=== PATIENT | male | born 1930 | race Caucasian/White ===

== ENCOUNTER 2017-06-01 08:42 | Inpatient (IN) ==
[2017-06-01 09:34] LABS: Basophils % 0.3 %; Eosinophils % 0.3 %; Hematocrit 43.6 % (37.5-50.1); Hemoglobin 14.3 g/dL (12.9-16.9); Immature Granulocytes % 1.1 % (0-4); Lymphocytes # 0.8 K/mcL (0.6-4.6); Lymphocytes % 6.1 %; Mean Corpuscular HGB Conc 32.8 g/dL (31.6-35.5); Mean Corpuscular Hemoglobin 31.7 pg (28.0-33.3); Mean Corpuscular Volume 96.7 fL (83.0-100.0); Mean Platelet Volume 10.2 fL (9.4-12.4); Monocytes # 1.1 K/mcL (0.0-1.3); Monocytes % 8.1 %; Neutrophils # 11.4 K/mcL (1.6-8.9); Platelet Count 151 K/mcL (140-400); Red Blood Count 4.51 M/mcL (4.19-5.50); Red Cell Distribution Width 13.3 % (11.5-14.5); Segmented Neutrophils % 84.1 %
--- NOTE | 2017-06-01 09:35 | Emergency Department Note ---
Disposition Clinical Impression: NSTEMI (non-ST elevated myocardial infarction), Elevated brain natriuretic peptide (BNP) level CKD (chronic kidney disease) Qualifiers: Chronic kidney disease stage: unspecified stage Qualified Code(s): N18.9 - Chronic kidney disease, unspecified Dyspnea Qualifiers: Dyspnea type: shortness of breath Qualified Code(s): R06.02 - Shortness of breath Disposition: Admitted As Inpatient Condition: Fair Referrals: Andrzej Vázquez DO [Primary Care Provider] - Forms: ED Satisfaction Letter SOB HPI - General Chief Complaint: ED Shortness of Breath/Dyspnea Stated Complaint: SOB Time Seen by Provider: 06/01/17 09:10 Source: patient Mode of arrival: private vehicle Limitations: no limitations Nursing Notes Reviewed: Yes Vital Signs Reviewed: Yes - History of Present Illness 87-year-old male history of coronary artery disease, CABG 2, A. fib not currently anticoagulated, diabetes who presents to the ER with a chief complaint of shortness of breath. Patient reports one month ago he was treated for bronchitis. He states he improved over the last week he started to have shortness of breath again. He reports that he is unable to lay flat. He also noticed swelling to his lower extremities. He denies any chest pain at this time. He has had a cough with mucus production. No fevers at home. He has had decreased appetite. No other complaints. Pt Subjective Complaint: shortness of breath, cough Onset (ago): week(s) (1) Context: recent illness Severity: moderate Consistency/Duration: constant Improves with: nothing Worsens with: lying flat Known history of: asthma, congestive heart failure Associated symptoms: Reports: cough, sputum production, orthopnea. Denies: chest pain, fever Treatment prior to arrival: none Cough present: Yes Cough Description: Involuntary Cough Frequency: Intermittent Sputum production: Yes Sputum Amount: Small Sputum Color: Clear - Related Data Home oxygen amount: none Allergies Allergy/AdvReac Type Severity Reaction Status Date / Time No Known Allergies Allergy Verified 01/06/16 02:18 All systems ED: reviewed and negative except as stated. Constitutional: Reports: chills. Denies: fever Cardiovascular: Reports: dyspnea on exertion. Denies: chest pain Respiratory: Reports: cough, dyspnea, sputum production Gastrointestinal: Reports: nausea, vomiting. Denies: abdominal pain, diarrhea Past Medical History - Past Medical History Attestation: Yes The following information was validated with the patient. Source: patient Medical history: Reports: asthma, atrial fibrillation, CHF, diabetes, hypertension Psychiatric history: Reports: no psych history - Social History Smoking Status: Never smoker Smokeless Tobacco Status: No Alcohol use: Reports: none Drug use: Reports: none Physical Exam - General Limitations: no limitations General appearance: alert, in no apparent distress - Head Head exam: atraumatic, normocephalic - Eye Eye exam: Present: normal appearance - ENT ENT exam: normal exam - Neck Neck exam: Present: normal inspection - Chest Chest inspection: Present: normal inspection, symmetric chest wall rise - Respiratory Respiratory exam: Present: other (Diminished breath sounds bilaterally) - Cardiovascular Cardiovascular exam: Present: tachycardia, irregular rhythm, normal heart sounds - Abdominal Exam Abdominal exam: Present: soft, Non-Tender. Absent: tenderness - Extremities Exam Extremities exam: Present: normal inspection, full ROM - Expanded Upper Extremity Exam Shoulder exam: Present: normal inspection, full ROM Arm exam: Present: normal inspection, full ROM Elbow exam: Present: normal inspection, full ROM Forearm/Wrist exam: Present: normal inspection, full ROM Hand exam: Present: normal inspection, full ROM - Expanded Lower Extremity Exam Hip/Pelvis exam: Present: normal inspection, full ROM Upper leg exam: Present: normal inspection, full ROM Knee exam: Present: normal inspection, full ROM Lower leg exam: Present: normal inspection, full ROM, swelling (There is 3+ bilateral lower extremity pitting edema) Ankle exam: Present: normal inspection, full ROM Foot/toe exam: Present: normal inspection, full ROM - Skin Skin exam: Present: warm, dry Course Course Narrative: Patient seen and examined the time of arrival. He was noted to have a short run of what looked like V. tach on the monitor which resolved without intervention. Crash cart placed in the room and patient connected to peds. We will obtain an EKG, chest x-ray as well as labs including troponin and BNP. He is currently hemodynamically stable noted be in A. fib RVR with a rate of roughly 105. - Reevaluation(s) Reevaluation #1: Labs reviewed. Patient has stable kidney injury. He has a troponin of 0.3 without previous for comparison. He is noted to have an elevated BNP over 500 as well as chest x-ray with cardiomegaly. Discussed with patient about findings and agreeable with heparin. He states he coughed up a slight amount of blood the other day but nothing acute. We will start him on heparin for NSTEMI. We will also have to transfer the patient has he there are no telemetry beds here currently. Reevaluation #2: No focal locations have no current beds available. They are starting to get some open beds here for telemetry. Patient and family would like to stay here possible. Case discussed with the hospitalist. - Consultations Consultation #1: I spoke with the on-call circus roustabout Dr. Brenner. Discussed patient's history, vitals, labs and interventions. No prior troponin to trend. He agrees with heparinization and they will see the patient in consultation. Vital Signs Temperature 97.9 F 06/01/17 08:46 Pulse Rate 103 06/01/17 08:46 Respiratory Rate 18 06/01/17 08:46 Blood Pressure 127/71 06/01/17 08:46 O2 Sat by Pulse Oximetry 97 06/01/17 08:46 Temperature 97.9 F 06/01/17 08:46 Pulse Rate 107 06/01/17 11:54 Respiratory Rate 17 06/01/17 11:54 Blood Pressure 106/64 06/01/17 11:54 O2 Sat by Pulse Oximetry 96 06/01/17 11:54 Oxygen Delivery Oxygen Delivery Nasal Cannula Shortness of Breath/Dyspnea - MDM Narrative Medical decision making narrative: 87-year-old male presents to the ER due to shortness of breath for one week. Cardiac history of CABG 2 as well as coronary artery disease hypertension diabetes and atrial fibrillation. Noted to be in A. fib RVR with a rate of roughly 105 here. Hemolytically stable. Chest x-ray with cardiomegaly with lower 70 pitting edema. He is noted to have kidney injury which is chronic as well as an elevated troponin of 0.3 without previous for comparison with a BNP of 500. Case discussed with the on-call circus roustabout who will see in consultation and agrees with heparinization. Patient will be heparinized for NSTEMI. Admitted to the hospitalist service. - Lab Data Lab results reviewed: Yes I reviewed the patient's lab results. Result diagrams: 06/01/17 09:19 06/01/17 09:19 Lab Results 06/01/17 06/01/17 06/01/17 Range/Units 09:19 09:19 09:19 WBC 13.5 H (4.3-11.1) K/mcL RBC 4.51 (4.19-5.50) M/mcL Hgb 14.3 (12.9-16.9) g/dL Hct 43.6 (37.5-50.1) % MCV 96.7 (83.0-100.0) fL MCH 31.7 (28.0-33.3) pg MCHC 32.8 (31.6-35.5) g/dL RDW 13.3 (11.5-14.5) % Plt Count 151 (140-400) K/mcL MPV 10.2 (9.4-12.4) fL Immature Gran % 1.1 (0-4) % Seg Neutrophils % 84.1 % Lymphocytes % 6.1 % Monocytes % 8.1 % Eosinophils % 0.3 % Basophils % 0.3 % Neutrophils # 11.4 H (1.6-8.9) K/mcL Lymphocytes # 0.8 (0.6-4.6) K/mcL Monocytes # 1.1 (0.0-1.3) K/mcL Eosinophils # 0.0 (0.0-0.6) K/mcL Basophils # 0.0 (0.0-0.2) K/mcL PT (9.4-12.1) Seconds INR APTT (26.0-36.0) Seconds Sodium 133 L (136-145) mEq/L Potassium 3.4 L (3.5-5.1) mEq/L Chloride 91 L (98-107) mEq/L Carbon Dioxide 28 (23-29) mEq/L BUN 33 H (8-23) mg/dL Creatinine 1.96 H (0.70-1.30) mg/dL Est GFR ( Amer) 40 L (> 60) Est GFR (Non-Af Amer) 33 L (> 60) BUN/Creatinine Ratio 17 (6-26) Glucose 225 H (70-105) mg/dL Calculated Osmolality 290 (280-300) Calcium 10.5 H (8.6-10.3) mg/dL Troponin I 0.31 H* (< 0.04) ng/mL B-Natriuretic Peptide (Less than 100) pg/mL 06/01/17 06/01/17 Range/Units 09:19 09:19 WBC (4.3-11.1) K/mcL RBC (4.19-5.50) M/mcL Hgb (12.9-16.9) g/dL Hct (37.5-50.1) % MCV (83.0-100.0) fL MCH (28.0-33.3) pg MCHC (31.6-35.5) g/dL RDW (11.5-14.5) % Plt Count (140-400) K/mcL MPV (9.4-12.4) fL Immature Gran % (0-4) % Seg Neutrophils % % Lymphocytes % % Monocytes % % Eosinophils % % Basophils % % Neutrophils # (1.6-8.9) K/mcL Lymphocytes # (0.6-4.6) K/mcL Monocytes # (0.0-1.3) K/mcL Eosinophils # (0.0-0.6) K/mcL Basophils # (0.0-0.2) K/mcL PT 13.5 H (9.4-12.1) Seconds INR 1.2 APTT 26.4 (26.0-36.0) Seconds Sodium (136-145) mEq/L Potassium (3.5-5.1) mEq/L Chloride (98-107) mEq/L Carbon Dioxide (23-29) mEq/L BUN (8-23) mg/dL Creatinine (0.70-1.30) mg/dL Est GFR ( Amer) (> 60) Est GFR (Non-Af Amer) (> 60) BUN/Creatinine Ratio (6-26) Glucose (70-105) mg/dL Calculated Osmolality (280-300) Calcium (8.6-10.3) mg/dL Troponin I (< 0.04) ng/mL B-Natriuretic Peptide 573 H (Less than 100) pg/mL - Radiology Data Radiology results reviewed: Yes I reviewed the patient's radiology results. Chest X-Ray 06/01/17 09:22 IMPRESSION: 1. Low lung volumes with bibasilar atelectasis. 2. Cardiomegaly without overt failure. D/ / Facundo Hughes MD / Facundo Hughes MD Interpreting Provider: Facundo Hughes MD - EKG Data EKG attestation: Yes I reviewed and interpreted this EKG. EKG results narrative: EKG demonstrates atrial fibrillation with rapid ventricular response with a rate of 105 with a right bundle branch block. Normal axis. Prolonged QRS duration 137. Normal R-wave progression. Nonspecific ST-T wave changes in the inferior and lateral leads. No gross ST elevations or depressions. No previous EKG for comparison. S.B.A.R. - S.B.A.R. Situation: Demographics, MOA Background: Presenting Complaint, Relevant PMH, Meds, & Allergies Assessment: Vital Signs, Course and respsone to treatment, Exam Concerns, Patient/Family Expectation, Pertinant Lab Results Recommendation: Barrier(s) to disposition, Recommendation based on pending studies, treatments, or consults S.B.A.R. Report Given to: Dr. Caputo
[2017-06-01 09:53] LABS: Calcium 10.5 mg/dL (8.6-10.3); Potassium 3.4 mEq/L (3.5-5.1)
--- NOTE | 2017-06-01 10:18 | Emergency Department Note ---
START Narrative - START START: I examined this patient and my medical decision-making was reviewed with the emergency medicine resident. I agree with the documented findings, disposition and treatment plan as described except to the extent set forth below. Patient seen with emergency medicine resident Dr. Jw Simon, Please see a copy of his note for details of the H&P, ED evaluation, management and disposition. I have independently evaluated the patient and confirmed appropriate portions of the history and physical exam. Briefly: A 87-year-old male presented by private vehicle for shortness of breath. He has a history of atrial fibrillation. Patient has atrial fibrillation rate about 100. Troponin critically elevated at 0.31. No prior troponins on record here. Patient will be treated for N STEMI,. There are no telemetry beds available at [facility]. We will go to bed management and ED charge nurse for placement. Patient be anticoagulated. Transfer disposition pending. Provided 45 minutes carpopedal service for this patient.
[2017-06-01] MEDS ORDERED: *HR* Heparin 5,000 UNIT/ML VIAL IVP PRN ×2 (10:21)
[2017-06-01] MEDS ORDERED: *HR* Heparin 5,000 UNIT/ML VIAL IVP ONE (10:21)
[2017-06-01 10:43] LABS: INR 1.2; Prothrombin Time 13.5 Seconds (9.4-12.1)
[2017-06-01 10:46] LABS: Activated Partial Thrombo Time 26.4 Seconds (26.0-36.0)
[2017-06-01] MEDS: Heparin 25,000 UNIT/500 ML D5W 25,000 UNIT/500 ML BAG IVC SCH (11:02)
[2017-06-01] MEDS ORDERED: Naloxone 0.4 MG/ML INJ IVP PRN (12:42)
[2017-06-01] MEDS ORDERED: Levofloxacin 500 MG/100 ML 500 MG/100 ML BAG IVPB ONE (12:55)
[2017-06-01] MEDS ORDERED: Acetaminophen 325 MG TABLET PO PRN (13:02)
[2017-06-01] MEDS ORDERED: *HR* HYDROcodone/Acet 5/325 mg TABLET PO PRN (13:02)
--- NOTE | 2017-06-01 13:06 | Internal Med History&Physical ---
Date of Encounter: 06/01/17 Time of Encounter: 12:15 Assessment and Plan (1) Acute exacerbation of CHF (congestive heart failure) Current visit: Yes Status: Acute Acute exacerbation of CHF. BNP 573 on admission. Pt. reports increase in SOB, dyspnea, orthopnea, weight/abdominal girth, and bilateral pedal edema over the past week. Generalized weakness. Pt. reports PO lasix 40 mg daily. Hold PO and administer 40 IVP lasix BID. Xopenex 0.63 Q8. 1.5L daily fluid restriction. Monitor I&O and daily weight. Supplemental O2 with titration SPO2 monitoring. Continuous cardiac telemetry. Echocardiogram ordered. Pt. discussed w/Dr. Caputo who is in agreement w/plan of care. Pt. is high risk for further morbidity d/t current CHF exacerbation, elevated troponin, pneumonia, generalized weakness, hx , and risk factors. Inpatient. Qualifiers: Congestive heart failure type: diastolic Qualified Code(s): I50.33 - Acute on chronic diastolic (congestive) heart failure (2) Elevated troponin Current visit: Yes Status: Acute Acutely elevated initial troponin of 0.31 on admission. Pt. reports pleuritic pain w/inspiration but denies chest pain. VQ scan to r/o PE. Trend x2. Pt. placed on heparin drip. Cardiology consult ordered in ED. Continuous cardiac telemetry. Echocardiogram ordered. Aspirin. Continue pts. Lipitor. (3) Pneumonia Current visit: Yes Status: Acute Acute CAP dx by PCP last . WBC 13.5 on admission. Pt. does not currently meet sepsis criteria but will be monitored closely. Pt. placed on PO levaquin and reports finishing 4/7 days. Blood cultures x2. Sputum culture. Legionella and strep pneumoniae antigens. IVPB levaquin 500 mg today followed by 250 mg daily d/t current renal dysfunction. Supplemental O2 w/titration and SpO2 monitoring. Xopenex 0.63 mg Q8. Will adjust abx coverage based on culture results. Monitor pt. and f/u labs. Qualifiers: Pneumonia type: due to unspecified organism Laterality: left Lung location: unspecified part of lung Qualified Code(s): J18.9 - Pneumonia, unspecified organism (4) Generalized weakness Current visit: Yes Status: Acute Acute generalized weakness for the past month most likely d/t pts. previous bronchitis dx and current pneumonia dx. Falls/safety precautions, up with assist , bed rest w/bedside commode w/assist only. SW/PT/OT consults ordered to assess pts. ambulation stability and safety/possible rehab needs post-discharge. (5) Nausea & vomiting Current visit: Yes Status: Acute Hx of acute nausea and vomiting. IVP Zofran 4 mg Q6 for N/V. IVP Protonix 40 mg daily. Monitor I&O. Nutrition consult for PO supplementation. Qualifiers: Vomiting type: cyclical vomiting Vomiting Intractability: non-intractable Qualified Code(s): G43.A0 - Cyclical vomiting, not intractable (6) Atrial fibrillation Current visit: Yes Status: Chronic Hx of chronic atrial fibrillation. EKG today shows atrial fibrillation with rapid ventricular response with aberrant conduction or ventricular premature complexes, right bundle branch block. Pt. placed on heparin drip. Continuous cardiac telemetry. Echocardiogram ordered. Qualifiers: Atrial fibrillation type: chronic Qualified Code(s): I48.2 - Chronic atrial fibrillation (7) Diabetes Current visit: Yes Status: Chronic Hx of chronic diabetes controlled with oral antihyperglycemic medications and insulin. Will continue patient's daily insulin and add low-dose correction sliding scale with hypoglycemic protocol. BG checks before meals and at bedtime. A1c in a.m. labs. Qualifiers: Diabetes mellitus type: type 2 Diabetes mellitus complication status: with unspecified complications Diabetes mellitus terminal operator insulin use: unspecified skilled nursing insulin use status Qualified Code(s): E11.8 - Type 2 diabetes mellitus with unspecified complications (8) HTN (hypertension) Current visit: Yes Status: Chronic Hx of chronic HTN. Monitor pt. and VS. Continue pts. Lopressor, Zaroxolyn. Qualifiers: Hypertension type: essential hypertension Qualified Code(s): I10 - Essential (primary) hypertension (9) HLD (hyperlipidemia) Current visit: Yes Status: Chronic Hx of chronic HLD. Lipid panel in a.m. labs. Continue pts. Lipitor. Qualifiers: Hyperlipidemia type: pure hypercholesterolemia Qualified Code(s): E78.00 - Pure hypercholesterolemia, unspecified; E78.0 - Pure hypercholesterolemia (10) CAD (coronary artery disease) Current visit: Yes Status: Chronic Hx of chronic CAD w/CABG x2, aortic valve replacement, and stent x1. Continuous cardiac telemetry. Echocardiogram ordered. Continue pts. Lopressor, aspirin therapy, Lipitor, Zaroxolyn. Qualifiers: Coronary Disease-Associated Artery/Lesion type: unspecified vessel or lesion type [place] vs. transplanted heart: [place] heart Associated angina: angina presence unspecified Qualified Code(s): I25.10 - Atherosclerotic heart disease of [place] coronary artery without angina pectoris (11) Thyroid disease Current visit: Yes Status: Chronic Hx of chronic thyroid disease. TSH and Free T4 ordered. Continue pts. Levothroid. (12) DVT prophylaxis Current visit: Yes Status: Acute Patient placed on heparin drip d/t current elevated troponin. Monitor pt. for signs of bleeding. Internal Medicine - H&P: HPI Chief complaint: SOB/Dyspnea/Generalized weakness Admitted From: Emergency Dept Plans for Post Hospital Care: Home History of present illness: Mr. Steel is a 87 year old male with medical hx asthma, atrial fibrillation, CHF, diabetes controlled with oral and insulin, hypertension, CAD, Aortic valve replacement, CABG x2, and stent x1 presents from the ED w/chief complaint of SOB and dyspnea over the past week. Pt. reports anorexia and no real BM for a week. States he has had increase in weight/abdominal girth and bilateral pedal edema for the past week. Reports he was diagnosed w/pneumonia by PCP last and placed on PO levaquin. Completed 4/7 days. Also reports pleuritic pain w/deep inspiration, chills, nausea, dry heaves, and cough w/sputum production. Pt. denies chest pain, palpitations, abdominal pain, changes in vision, unusual bleeding, numbness, tingling, dizziness, lightheadedness, pre- syncope, or syncope. Past Med Surg Social Fam HX - Past Medical History Source: patient, old records reviewed, obtained from family Medical history: asthma, atrial fibrillation, CHF, diabetes (Oral and insulin), hypertension Psychiatric history: no psych history - Past Surgical History Surgical History: angioplasty/stent (x1), coronary bypass (CABG) (x2), other ( Aortic valve replacement) - Social History Smoking Status: Never smoker Smokeless Tobacco Status: No Alcohol use: none Drug use: none Occupational status: retired Current living situation: Home, With Family Activity Level: Uses cane/walker Recent Out of Country Travel Within the Last 8 Weeks: No Exposure or Possible Exposure to Illness During Travel: No - Family History Father Race: Family Member Ethnicity: Non- Living Status: Age at : 57 Cause of : MS Hx Family Neuromuscular Disorders: Yes (MS) Mother Race: Family Member Ethnicity: Non- Living Status: Age at : 90 Cause of : HD Hx Family Cardiac Disorders: Yes (HD) Brother Race: Family Member Ethnicity: Non- Living Status: Age at : 88 Cause of : HD Hx Family Neurologic Disorders: Yes (Alzheimer's disease) Sister Race: Family Member Ethnicity: Non- Living Status: Still Living Hx Family Endocrine Disorder: Yes (DM ) Internal Medicine - H&P: Meds 3 Allergy/AdvReac Type Severity Reaction Status Date / Time No Known Allergies Allergy Verified 01/06/16 02:18 All Systems PM: A 10-system review of systems was performed and is negative for pertinent findings except as documented above in the HPI. - Constitutional Constitutional: as per HPI, anorexia, chills, fatigue, weakness, no fever(s), no night sweats - EENT Eyes: no change in vision, no discharge, no pain, no photophobia Ears: no ear discharge, no ear pain, no tinnitus Nose, mouth and throat: no dysphagia, no nasal discharge, no neck pain, no sore throat - Breasts Breasts: as per HPI - Cardiovascular Cardiovascular ROS IM: as per HPI, dyspnea, dyspnea on exertion, edema ( Bilateral), no chest pain, no diaphoresis, no lightheadedness, no palpitations, no syncope - Respiratory Respiratory: as per HPI, cough, dyspnea, dyspnea on exertion, wheezing, pain on inspiration, change in phlegm color, no excessive phlegm production - Gastrointestinal Gastrointestinal: as per HPI, nausea, vomiting (Dry heaves), no abdominal pain, no diarrhea, no hematemesis, no hematochezia, no melena - Genitourinary Genitourinary ROS male: as per HPI - Musculoskeletal Musculoskeletal ROS IM: no numbness, no tingling - Integumentary Integumentary IM: no rash, no unusual bruising - Neurological Neurological ROS: no confusion, no convulsions, no focal weakness, no numbness, no tingling, no tremor(s) - Psychiatric Psychiatric: as per HPI - Endocrine Endocrine IM: as per HPI - Hematologic/Lymphatic Hematologic/Lymphatic: no easy bruising - Allergic/Immunologic Allergic/Immunologic: as per HPI - Constitutional Vitals: Temp Pulse Resp BP Pulse Ox 97.9 F 89 14 134/91 95 06/01/17 08:46 06/01/17 12:51 06/01/17 12:51 06/01/17 12:51 06/01/17 12:51 General appearance: Present: cooperative, mild distress, A&O X 3, pleasant, obese, answers questions appropriately - Head Head exam: Present: atraumatic, normocephalic - Eye Eye exam: Present: PERRL, conjuntiva pink, sclera anicteric Pupils: Present: PERRL - Neck Neck exam general surgery: Present: normal inspection, supple, trachea midline. Absent: lymphadenopathy - Respiratory Respiratory exam: Present: accessory muscle use, wheezes. Absent: rales, rhonchi - Cardiovascular Cardiovascular exam: Present: irregular rhythm (Atrial fibrillation) - GI/Abdominal GI/Abdominal exam: Present: normal bowel sounds, soft, no peritoneal signs. Absent: distended, tenderness - Rectal Rectal exam: Present: deferred - Additional comments: exam deferred. - Extremities Exam Extremities exam: Present: pedal edema (2+ bilateral pitting edema of LEs), warm , radial pulses palpable and symmetrical. Absent: calf tenderness, cyanotic - Back Exam Back exam: Present: normal inspection - Neurological Exam Neurological exam: Present: CN II-XII intact, oriented X3, no focal deficits. Absent: pronater drift, facial droop, speech deficit - Psychiatric Psychiatric exam: Present: normal affect, normal mood - Skin Skin exam: Present: dry, intact Internal Med - H&P Results - Labs CBC & Chem 7: 06/01/17 09:19 06/01/17 09:19 Labs: Short CBC 06/01/17 Range/Units 09:19 WBC 13.5 H (4.3-11.1) K/mcL Hgb 14.3 (12.9-16.9) g/dL Hct 43.6 (37.5-50.1) % Plt Count 151 (140-400) K/mcL Neutrophils # 11.4 H (1.6-8.9) K/mcL BMP 06/01/17 09:19 Sodium 133 L Potassium 3.4 L Chloride 91 L Carbon Dioxide 28 BUN 33 H Creatinine 1.96 H Glucose 225 H Calcium 10.5 H Cardiac Enzymes 06/01/17 Range/Units 09:19 Troponin I 0.31 H* (< 0.04) ng/mL - EKG Data Prior EKG available for review: no EKG comments: 06/01/17 13:22 EKG dated 06/01/17 shows atrial fibrillation with rapid ventricular response with aberrant conduction or ventricular premature complexes, right bundle branch block, abnormal ECG. - Impressions ITS Impressions Chest X-Ray 06/01/17 09:22 IMPRESSION: 1. Low lung volumes with bibasilar atelectasis. 2. Cardiomegaly without overt failure. D/ / Facundo Hughes MD / Facundo Hughes MD Interpreting Provider: Facundo Hughes MD - Diagnostic Studies Chest x-ray Additional comments: Impressions Chest X-Ray 06/01/17 09:22
--- NOTE | 2017-06-01 13:19 | Event Note ---
Date of Encounter: 06/01/17 Time of Encounter: 13:17 Patient and examined with nurse practitioner. Acute congestive heart failure due to diastolic dysfunction and uncontrolled atrial fibrillation. We will start the patient only lasix 40 mg IV twice-daily. will give digoxin intravenously once now for rate control. Patient has left-sided pleuritic chest pain. We will get VQ scan to r/o PE. He has been on Levaquin an outpatient for acute bronchitis will continue that.
[2017-06-01] MEDS ORDERED: *HR* Dextrose 50 % in Water (Syg) 50 ML SYRINGE IVP PRN (13:39)
[2017-06-01] MEDS ORDERED: D5% in Water 1,000 ML IVC PRN (13:39)
[2017-06-01] MEDS ORDERED: Dextrose Gel 15 GM/37.5 ML TUBE PO PRN ×2 (13:39)
[2017-06-01] MEDS: Potassium Chloride 20 MEQ, Lidocaine 1% 2 ML in D5% in Water 250 ML IVPB ONE ×2 (14:54→15:09)
[2017-06-01 15:47] LABS: Thyroid Stimulating Hormone 2.258 mcIU/mL (0.340-5.600)
[2017-06-01] MEDS ORDERED: metOLazone 2.5 MG TABLET PO SCH (16:00)
[2017-06-01] MEDS: Pantoprazole 40 MG VIAL IVP SCH (16:07)
[2017-06-01] MEDS: Furosemide 40 MG/4 ML VIAL IVP SCH (16:07)
[2017-06-01] MEDS: Levalbuterol Neb 0.63 MG/3 ML IH SCH ×2 (16:17→22:54)
[2017-06-01] MEDS: Insulin LISPRO 300 UNITS/3 ML VIAL SQ SCH ×2 (16:29→22:43)
--- NOTE | 2017-06-01 16:52 | Cardiology Consult Note ---
<KarenCamilla Ava - Last Filed: 06/01/17 16:42> Date of Encounter: 06/01/17 Time of Encounter: 16:42 Assessment and Plan (1) Acute exacerbation of CHF (congestive heart failure) Current Visit: Yes Status: Acute Patient with clinical appearance of hypervolemia. Patient denies compliance with lifestyle modifications. BNP- 538, VQ (06/01/2107)scan low probability for PE, CXR () low lung volumes with bibasilar atelectasis, cardiomegaly. -Agree with continuing IV diuresis with lasix IV 40mg BID. -Xopenex, supplemental o2 with titration. SPo2 monitoring, continuous cardiac telemetry. -FU echocardiogram -Fluid restriction, monitor I&O and daily weights. -Continue home meds including BB, zaroxolyn, and ASA. -Consider adding aldactone. Qualifiers: Congestive heart failure type: diastolic Qualified Code(s): I50.33 - Acute on chronic diastolic (congestive) heart failure (2) Elevated troponin Current Visit: Yes Status: Acute Troponins 0.31 initially, 0.36 second set. VQ scan negative to r/o PE secondary for reported pleuritic chest pain. ECG 06/01/2107 afib with RVR, RBBB and PVCs. -Agree with heparin drip. -Will continue to monitor. -As PNA resolves and patient improves clinically, we will likely proceed with stress testing on Thursday. (3) Atrial fibrillation Current Visit: Yes Status: Chronic PMHx of chronic atrial fibrillation. -EKG on 06/01/2017 shows atrial fibrillation with RVR, RBBB, PVC's -on heparin drip and home beta justen. -continuous cardiac telemetry -Rate controlled. Will continue to monitor. Qualifiers: Atrial fibrillation type: chronic Qualified Code(s): I48.2 - Chronic atrial fibrillation (4) CAD (coronary artery disease) Current Visit: Yes Status: Chronic 4 vessel CABG in 1984 at [facility] 2 vessel CABG in 2005 at [facility] in [facility] with stent placement 2 years ago in [facility] -Will order stress testing when patient improves clinically. Qualifiers: Coronary Disease-Associated Artery/Lesion type: unspecified vessel or lesion type [place] vs. transplanted heart: [place] heart Associated angina: angina presence unspecified Qualified Code(s): I25.10 - Atherosclerotic heart disease of [place] coronary artery without angina pectoris (5) Pneumonia Current Visit: Yes Status: Acute IV levaquin. Patient with YOSHI on CKD. -Management per primary team. Qualifiers: Pneumonia type: due to unspecified organism Laterality: left Lung location: unspecified part of lung Qualified Code(s): J18.9 - Pneumonia, unspecified organism Discussion w patient/family: The assessment and plan as outlined above was discussed with the patient and/or family members who expressed understanding and agreement. All questions were answered. Thank you for involving us in the care of your patient. Please call with any questions. History of Present Illness Consult date: 06/01/17 Requesting physician: Jw Simon Consult reason: NSTEMI/Elevated Troponin Chief complaint: Dyspnea History of present illness: Mr. Steel is a 87 year old male with past medical history of asthma, atrial fibrillation, congestive heart failure, diabetes, hypertension, coronary artery disease, aortic valve replacement, CABG 2, and stent presented to [facility] on 2017 with chief complaint of SOB and dyspnea for 1 week. Patient denies any chest pain, chest pressure, nausea, or diaphoresis. Per patient, the last time he reportedly remembers feeling chest pain was prior to his four-vessel CABG in 1984 which he had performed at [facility]. Patient is accompanied by his who also reports the patient underwent a two-vessel bypass and aortic valve replacement in 2005 as well as a stent placement apporximately 2 years ago. The previous 2 procedures were performed at [facility] in [facility]. Patient states that he was started on treatment with an antibiotic for bronchitis approximately 8 days ago, however, his symptoms worsened over the past week. His primary care provider ordered a chest x-ray this past Thursday which showed a left lower lobe pneumonia for which he advised continuation of therapy with Levaquin. Patient also reports decreased appetite over the last 8 days with associated nausea during mealtimes and subsequent inability to swallow his food. He also reports an 8 day history of constipation. He denies any vomiting, diarrhea, hematochezia, or melena. He reports significant swelling in his bilateral lower extremities. Past Med Surg Social Fam HX - Past Medical History Medical history: asthma, atrial fibrillation, CHF, diabetes, hypertension Psychiatric history: no psych history - Past Surgical History Surgical History: angioplasty/stent, coronary bypass (CABG), other - Social History Smoking Status: Never smoker Smokeless Tobacco Status: No Alcohol use: none Drug use: none - Family History Father History Unknown: Yes Adopted: No Age: 57 Race: Family Member Ethnicity: Non- Living Status: Age at : 57 Cause of : MS Hx Family Cardiac Disorders: No Hx Family Respiratory Disorders: No Hx Family Cancer: No Hx Family GI Disorders: No Hx Family Genitourinary Disorders: No Hx Family Endocrine Disorder: No Hx Family Musculoskeletal Disorders: No Hx Family Neuromuscular Disorders: Yes Hx Family Neurologic Disorders: No Hx Family HEENT Disorders: No Hx Family Autoimmune Disorders: No Hx Family Reproductive Disorders: No Hx Family Psychosocial Disorders: No Hx Family Medical Disorders: No Mother History Unknown: Yes Age: 90 Race: Family Member Ethnicity: Non- Living Status: Age at : 90 Cause of : heart problems Hx Family Cardiac Disorders: No Hx Family Respiratory Disorders: No Hx Family Cancer: No Hx Family GI Disorders: No Hx Family Genitourinary Disorders: No Hx Family Endocrine Disorder: No Hx Family Musculoskeletal Disorders: No Hx Family Neuromuscular Disorders: No Hx Family Neurologic Disorders: No Hx Family HEENT Disorders: No Hx Family Autoimmune Disorders: No Hx Family Reproductive Disorders: No Hx Family Psychosocial Disorders: No Hx Family Medical Disorders: No Brother History Unknown: Yes Adopted: No Age: 88 Race: Family Member Ethnicity: Non- Living Status: Age at : 88 Cause of : heart problems Hx Family Cardiac Disorders: Yes Hx Family Respiratory Disorders: No Hx Family Cancer: No Hx Family GI Disorders: No Hx Family Genitourinary Disorders: No Hx Family Endocrine Disorder: No Hx Family Musculoskeletal Disorders: No Hx Family Neuromuscular Disorders: No Hx Family Neurologic Disorders: No Hx Family HEENT Disorders: No Hx Family Autoimmune Disorders: No Hx Family Reproductive Disorders: No Hx Family Psychosocial Disorders: No Hx Family Medical Disorders: No Sister History Unknown: Yes Adopted: Yes Age: 90 Race: Family Member Ethnicity: Non- Living Status: Still Living Hx Family Cardiac Disorders: No Hx Family Respiratory Disorders: No Hx Family Cancer: No Hx Family GI Disorders: No Hx Family Genitourinary Disorders: No Hx Family Endocrine Disorder: Yes (DM) Hx Family Musculoskeletal Disorders: No Hx Family Neuromuscular Disorders: No Hx Family Neurologic Disorders: No Hx Family HEENT Disorders: No Hx Family Autoimmune Disorders: No Hx Family Reproductive Disorders: No Hx Family Psychosocial Disorders: No Hx Family Medical Disorders: No Medications and Allergies Albuterol Sulfate [Proventil Hfa] 2 puff IH Q4H PRN 06/01/17 [History] Aspirin [Aspirin] 81 mg PO DAILY 06/01/17 [History] Atorvastatin Calcium [Lipitor] 20 mg PO HS 06/01/17 [History] Cetirizine HCl [Zyrtec] 10 mg PO DAILY 06/01/17 [History] Cholecalciferol (Vitamin D3) [Vitamin D3] 8,000 unit PO DAILY 06/01/17 [History] Dutasteride [Avodart] 0.5 mg PO DAILY 06/01/17 [History] Ferrous Sulfate 325 mg PO TUFR 06/01/17 [History] Fluticasone Propionate [Flovent Hfa] 1 puff IH BID 06/01/17 [History] Furosemide [Lasix] 40 mg PO DAILY 06/01/17 [History] Glimepiride [Amaryl] 8 mg PO DAILY 06/01/17 [History] Insulin ASPART [Novolog Flexpen] 0 unit SQ TID 06/01/17 [History] Insulin Glargine,Hum.rec.anlog [Lantus Solostar] 15 unit SQ HS 06/01/17 [History ] Ipratropium/Albuterol Neb [Duoneb] 3 ml IH Q6H PRN 06/01/17 [History] Levothyroxine [Synthroid] 88 mcg PO 0630 06/01/17 [History] Linagliptin [Tradjenta] 5 mg PO DAILY 06/01/17 [History] Liothyronine Sodium [Cytomel] 5 mcg PO DAILY 06/01/17 [History] Metoprolol [Lopressor] 25 mg PO BID 06/01/17 [History] Montelukast [Singulair] 10 mg PO DAILY 06/01/17 [History] Niacin [Niaspan] 1,000 mg PO DAILY 06/01/17 [History] Replenex 1 tab PO DAILY 06/01/17 [History] levoFLOXacin [Levofloxacin] 500 mg PO DAILY 06/01/17 [History] metOLazone [Zaroxolyn] 2.5 mg PO MOTH 06/01/17 [History] 3 Allergy/AdvReac Type Severity Reaction Status Date / Time potassium AdvReac See Verified 06/01/17 15:11 Comments All Systems Review: A 10-system review of systems was performed and is negative for pertinent findings except as documented above in the HPI. - Constitutional Constitutional: chills, fatigue, weight gain - Cardiovascular Cardiovascular: dyspnea at rest, dyspnea on exertion, leg edema, no diaphoresis , no radiating jaw, neck or arm pain, no lightheadedness, no palpitations - Respiratory Respiratory: cough, dyspnea - Gastrointestinal Gastrointestinal: constipation, no abdominal pain, no hematemesis, no hematochezia - Integumentary Integumentary: no erythema Physical Examination Vital Signs, Last 4 Hours Temp Pulse Resp BP Pulse Ox 06/01/17 16:38 97.5 F L 83 16 101/77 97 06/01/17 16:18 20 97 06/01/17 14:24 97 06/01/17 13:24 97.6 F 91 20 173/109 97 General: Conversant HEENT: Atraumatic, Normocephaly, Mucus Membranes Moist Cardiac: Reg Rate and Rhythm, Normal S1 and S2, No Murmur Lungs: Other (Marked wheezing and crackles on left lower lobe. Diminished air movement in right bases, mild crackles. ) Neuro: Alert and responsive Abdomen: Soft Skin: No rashes noted on visualized skin Extremities: Other (4+ edema bilaterally) Results 06/01/17 09:19 06/01/17 09:19 Lab Results 06/01/17 06/01/17 15:03 15:03 Troponin I 0.34 H* TSH 2.258 Consult Discharge Plan - Plan Referrals: Andrzej Vázquez DO [Primary Care Provider] - <Azeem Brenner - Last Filed: 06/02/17 22:31> Date of Encounter: 06/02/17 Time of Encounter: 19:00 - Attending Attestation I examined this patient and my medical decision-making was reviewed with the Resident Physician. I agree with the documented findings, disposition and treatment plan as described except to the extent set forth below. CC: Shortness of breath, increased lower extremity Pt reports several day history of increasing shortness of breath. Pt is mildly confused, however orientates easily, pts at bedside supplements history. Pt admits to approximately of seven days of coughing, shortness of breath, and fatigue. He notes increasing lower extremity swelling, . He was evaluated by his primary care physician on 05/29, CXR ordered, found to have LLL pnuemonia, pt referred to ER for further evaluation. PT found to be in A fib on arrival, with rapid ventricular response, heart rates in 120s and 130s. He was started on IV diltiazem, heparin, and IV diuresis with improvement in shortness of breath and resolution heart racing. He and his report he is breathing more comfortably at present. IMP: 1. Acute on chronic diastolic heart failure, responding to IV diuresis, will order echocardiogram to evaluate LV function. 2. CAD - severe triple vessel CAD, post CABG x 2, PCI x 1, unknown vessel, old records requested, add long acting nitrate, continue IV heparin, 3. NSTEMI: elevated troponin, not clearing if due to ischemia or demand mismatch with rapid ventricular response, will order stress testing when better compensated from CHF. 4. Aortic valve stenosis, post AVR 2005, appears biomechanical by clinical exam , old records requested. 5. LLL pneumonia, on IV ab per primary service. 6. Paroxysmal A fig, continuing in A fib with better control of ventricular response, suspect is now persistant, will review echo and stress imaging when available, futher recommendations pending cardiac imaging. Assessment and Plan Discussion w patient/family: The assessment and plan as outlined above was discussed with the patient and/or family members who expressed understanding and agreement. All questions were answered. Thank you for involving us in the care of your patient. Please call with any questions. History of Present Illness History of present illness: Mr. Steel is a 87 year old male All Systems Review: A 10-system review of systems was performed and is negative for pertinent findings except as documented above in the HPI. Results 06/02/17 05:35 06/02/17 05:35 Lab Results 06/01/17 17:47 APTT 63.7 H D
[2017-06-01] MEDS ORDERED: Perflutren Lipid Microsphere 1.3 ML in 0.9 % Sodium Chloride 8.7 ML IVP ONE (21:48)
[2017-06-01] MEDS: Insulin DETEMIR 100 UNIT/ML X5UNITS SQ SCH (22:43)
[2017-06-01] MEDS: Ipratropium/Albuterol Neb 3 ML IH PRN (22:53)
[2017-06-01] MEDS: Beclomethasone 80mcg MDI IH SCH (22:54)
[2017-06-02] MEDS: Levalbuterol Neb 0.63 MG/3 ML IH SCH ×4 (04:42→22:16)
[2017-06-02 05:56] LABS: Basophils % 0.3 %; Eosinophils # 0.1 K/mcL (0.0-0.6); Eosinophils % 0.6 %; Hemoglobin 13.3 g/dL (12.9-16.9); Immature Granulocytes % 0.8 % (0-4); Lymphocytes # 1.2 K/mcL (0.6-4.6); Lymphocytes % 9.5 %; Mean Corpuscular HGB Conc 33.3 g/dL (31.6-35.5); Mean Corpuscular Hemoglobin 31.9 pg (28.0-33.3); Mean Corpuscular Volume 95.9 fL (83.0-100.0); Mean Platelet Volume 10.7 fL (9.4-12.4); Monocytes # 1.2 K/mcL (0.0-1.3); Monocytes % 9.5 %; Neutrophils # 9.9 K/mcL (1.6-8.9); Platelet Count 147 K/mcL (140-400); Red Blood Count 4.17 M/mcL (4.19-5.50); Red Cell Distribution Width 13.2 % (11.5-14.5); Segmented Neutrophils % 79.3 %
[2017-06-02 06:02] LABS: Hemoglobin A1C 7.5 %
[2017-06-02 06:17] LABS: Albumin 2.8 g/dL (3.5-5.7); Albumin/Globulin Ratio 0.9 (1.1-2.2); Calcium 9.9 mg/dL (8.6-10.3); Chol/HDL Ratio 2.9 (0-4.9); Magnesium 1.3 mg/dL (1.6-2.6); Potassium 2.9 mEq/L (3.5-5.1); Total Protein 5.8 g/dL (6.4-8.9)
[2017-06-02] MEDS ORDERED: Potassium Chloride 40 MEQ, Lidocaine 1% 2 ML in D5% in Water 500 ML IVPB ONE (07:44)
[2017-06-02] MEDS: Insulin LISPRO 300 UNITS/3 ML VIAL SQ SCH ×4 (08:15→20:09)
[2017-06-02] MEDS: Cholecalciferol (D-3) 1,000 UNIT TABLET PO SCH (08:20)
[2017-06-02] MEDS: Finasteride 5 MG TABLET PO SCH (08:20)
[2017-06-02] MEDS: Niacin (24 HR) 500 MG TAB.ER.24H PO SCH (08:21)
[2017-06-02] MEDS: Aspirin 81 MG TAB.CHEW PO SCH (08:21)
[2017-06-02] MEDS: Levofloxacin 250 MG/50 ML 250 MG/50 ML BAG IVPB SCH (08:22)
--- NOTE | 2017-06-02 08:22 | Cardiology Progress Note ---
<KarenCamilla Ava - Last Filed: 06/02/17 11:15> Date of Encounter: 06/02/17 Time of Encounter: 08:20 Assessment and Plan (1) Acute exacerbation of CHF (congestive heart failure) Current Visit: Yes Status: Acute Patient with clinical appearance of hypervolemia. Patient denies compliance with lifestyle modifications. BNP- 538, VQ (06/01/2107)scan low probability for PE, CXR () low lung volumes with bibasilar atelectasis, cardiomegaly. -Xopenex, supplemental o2 with titration. SPo2 monitoring, continuous cardiac telemetry. -Fluid restriction, monitor I&O and daily weights. -Continue home meds including BB, zaroxolyn, and ASA. 06/02/2017: -Echocardiogram 06/02/2017 LVEF 65%, mild left ventricular diastolic dysfunction , RV not well visualized, normal functioning bioprosthetic aortic valve, mild mitral valve regurgitation, no pulmonary hyptertension. -Agree with continuing IV diuresis with lasix IV 40mg BID for another day. ( creatinine appears at baseline 1.67, down from 1.96 yesterday on admission). -Increase activity as tolerated. -Consider adding aldactone. Will discuss with Dr. Brenner. Qualifiers: Congestive heart failure type: diastolic Qualified Code(s): I50.33 - Acute on chronic diastolic (congestive) heart failure (2) Elevated troponin Current Visit: Yes Status: Acute Troponins 0.31 initially, 0.36 second set, 0.37, 0.37 this AM). VQ scan negative to r/o PE secondary for reported pleuritic chest pain. ECG 06/01/2107 afib with RVR, RBBB and PVCs. -Agree with heparin drip. -Will continue to monitor. -As PNA resolves and patient improves clinically, we will likely proceed with stress testing on Thursday. (3) Atrial fibrillation Current Visit: Yes Status: Chronic PMHx of chronic atrial fibrillation. -EKG on 06/01/2017 shows atrial fibrillation with RVR, RBBB, PVC's -on heparin drip and home beta justen. -continuous cardiac telemetry -Rate controlled. Will continue to monitor. Qualifiers: Atrial fibrillation type: chronic Qualified Code(s): I48.2 - Chronic atrial fibrillation (4) CAD (coronary artery disease) Current Visit: Yes Status: Chronic 4 vessel CABG in 1984 at [facility] 2 vessel CABG in 2005 at [facility] in [facility] with stent placement 2 years ago in [facility] -Will order stress testing when patient improves clinically. Qualifiers: Coronary Disease-Associated Artery/Lesion type: unspecified vessel or lesion type [place] vs. transplanted heart: [place] heart Associated angina: angina presence unspecified Qualified Code(s): I25.10 - Atherosclerotic heart disease of [place] coronary artery without angina pectoris (5) Pneumonia Current Visit: Yes Status: Acute IV levaquin. Patient with YOSHI on CKD. -Management per primary team. Qualifiers: Pneumonia type: due to unspecified organism Laterality: left Lung location: unspecified part of lung Qualified Code(s): J18.9 - Pneumonia, unspecified organism Discussion w patient/family: The assessment and plan as outlined above was discussed with the patient and/or family members who expressed understanding and agreement. All questions were answered. Thank you for involving us in the care of your patient. Please call with any questions. Subjective Principal diagnosis: NSTEMI/Acute exacerbation of CHF/CAD, Afib Interval history: Mr. Steel is a 87 year old male with past medical history of asthma, atrial fibrillation, congestive heart failure, diabetes, hypertension, coronary artery disease, aortic valve replacement, CABG 2, and stent presented to [facility] on 2017 with chief complaint of SOB and dyspnea for 1 week. Patient resting comfortably this morning. States his SOB has improved. Complains of lack of bowel movement. No chest pain, pressure, SOB, palpitations, nausea or diaphoresis. Objective Vital Signs, Last 4 Hours Temp Pulse Resp BP Pulse Ox 06/02/17 08:20 98.1 F 89 18 182/88 96 06/02/17 04:49 98.4 F 82 20 98/73 98 06/02/17 04:44 18 97 General: Conversant, No Apparent Distress HEENT: Atraumatic, Normocephaly, Mucus Membranes Moist Neck: No JVD, Normal carotid pulses Cardiac: Reg Rate and Rhythm, Normal S1 and S2 Lungs: Normal Breath Sounds, No Wheeze, Rales, Rhonchi Neuro: Alert and responsive, No focal deficits noted Abdomen: Soft, Non-Tender Skin: No rashes noted on visualized skin Musculoskeletal: No Chest Wall Tenderness Extremities: No Clubbing, No Cyanosis, Other (4+ pedal edema, improved from yesterday) Results 06/02/17 05:35 06/02/17 05:35 Lab Results 06/01/17 06/01/17 06/02/17 17:47 21:25 00:16 WBC Hgb Hct Plt Count APTT 63.7 H D 53.5 H Sodium Potassium Chloride Carbon Dioxide BUN Creatinine Glucose Calcium Magnesium Total Bilirubin AST ALT Alkaline Phosphatase Troponin I 0.37 H* 06/02/17 06/02/17 06/02/17 05:35 05:35 05:35 WBC 12.5 H Hgb 13.3 Hct 40.0 Plt Count 147 APTT Sodium 135 L Potassium 2.9 L Chloride 93 L Carbon Dioxide 34 H BUN 29 H Creatinine 1.67 H Glucose 84 Calcium 9.9 Magnesium 1.3 L Total Bilirubin 1.0 AST 30 ALT 20 Alkaline Phosphatase 61 Troponin I 0.37 H* 06/02/17 05:35 WBC Hgb Hct Plt Count APTT 97.6 H D Sodium Potassium Chloride Carbon Dioxide BUN Creatinine Glucose Calcium Magnesium Total Bilirubin AST ALT Alkaline Phosphatase Troponin I Consult Discharge Plan - Plan Referrals: Andrzej Vázquez, [Primary Care Provider] - <Azeem Brenner - Last Filed: 06/03/17 21:09> Date of Encounter: 06/03/17 Time of Encounter: 10:00 Assessment and Plan Discussion w patient/family: The assessment and plan as outlined above was discussed with the patient and/or family members who expressed understanding and agreement. All questions were answered. Thank you for involving us in the care of your patient. Please call with any questions. Results 06/03/17 05:40 06/03/17 05:40 Lab Results 06/03/17 06/03/17 06/03/17 05:40 05:40 20:11 WBC 12.0 H Hgb 13.2 Hct 40.2 Plt Count 147 APTT 57.6 H Sodium 132 L Potassium 3.4 L Chloride 90 L Carbon Dioxide 34 H BUN 31 H Creatinine 1.91 H Glucose 223 H Calcium 9.8 Total Bilirubin 0.8 AST 30 ALT 23 Alkaline Phosphatase 58 - Attending Attestation I examined this patient and my medical decision-making was reviewed with the Resident Physician. I agree with the documented findings, disposition and treatment plan as described except to the extent set forth below CC: Shortness of breath Pt reports shortness of breath has improved, coughing has also improved. Pt reports his heart racing has resolved PE: reviewed above, agree IMP: 1. Acute exacerbation of chronic diastolic heart failure, improved on IV diuresis 2. Elevated troponin, of unclear significance, will order stress imaging to evaluate ischemic substrate 3. Chronic atrial fibrillation: ventricular response rate is controlled. 4. CAD - severe three vessel disease, post CABG x 2, 5. AVR - status post aortic valve replacement with biomechanical valve, functioning normally by echo..
[2017-06-02] MEDS: Furosemide 40 MG/4 ML VIAL IVP SCH ×2 (08:34→17:23)
[2017-06-02] MEDS: Loratadine 10 MG TABLET PO SCH (08:44)
[2017-06-02] MEDS: Pantoprazole 40 MG VIAL IVP SCH (08:44)
--- NOTE | 2017-06-02 09:07 | Internal Med Progress Note ---
Date of Encounter: 06/02/17 Time of Encounter: 09:03 - Assessment and plan (1) Acute exacerbation of CHF (congestive heart failure) Current Visit: Yes Status: Acute Assessment and plan: Patient is clinically hypervolemic; continue diuretics with Lasix and Metolazone Currently on fluid restriction 1.5 L Cardiology consulted. Follow-up echo pending Continue medications per cardiology. Consider adding aldactoone Qualifiers: Congestive heart failure type: diastolic Qualified Code(s): I50.33 - Acute on chronic diastolic (congestive) heart failure (2) Elevated troponin Current Visit: Yes Status: Acute Assessment and plan: Initial troponin of 0.37 on admission; Still elevated at 0.37. VQ scan low probability for PE Continue to trend troponin as it is increasing Cardio consulted - Patient on heparin drip - As patient improves clinically, proceed with stress test. (3) Atrial fibrillation Current Visit: Yes Status: Chronic Assessment and plan: PMHx of chronic A-fib, Cardiology consulted - On heparin drip and home beta justen - Continuous telemetry - Rate controlled currently, will continue to monitor Patient does have CHADSVASC of 5 (age, HTN, DM, CHF) but is not ideal candidate for custodial anticoagulation given his fall risk and adverse reaction when previously on blood thinners Qualifiers: Atrial fibrillation type: chronic Qualified Code(s): I48.2 - Chronic atrial fibrillation (4) CAD (coronary artery disease) Current Visit: Yes Status: Chronic Assessment and plan: No chest pain currently 4 vessel CABG in 1984 at [facility] 2 vessel CABG in 2005 at [facility] in [facility] with stent placement 2 years ago in [facility] Stress test when patient improves clinically Qualifiers: Coronary Disease-Associated Artery/Lesion type: unspecified vessel or lesion type [place] vs. transplanted heart: [place] heart Associated angina: angina presence unspecified Qualified Code(s): I25.10 - Atherosclerotic heart disease of [place] coronary artery without angina pectoris (5) Pneumonia Current Visit: Yes Status: Acute Assessment and plan: Continue IV levaquin. Continue to monitor. He did complete 4 out of 7 day course of PO Levaquin Qualifiers: Pneumonia type: due to unspecified organism Laterality: left Lung location: unspecified part of lung Qualified Code(s): J18.9 - Pneumonia, unspecified organism (6) Insulin dependent diabetes mellitus Current Visit: Yes Status: Chronic Assessment and plan: Continue patients daily insulin and low dose sliding scale insulin with hypoglycemic protocol. - BG checks before meals and at bedtime. A1c QAM (7) CKD (chronic kidney disease) Current Visit: Yes Status: Chronic Assessment and plan: YOSHI on CKD. Continue to monitor Qualifiers: Chronic kidney disease stage: unspecified stage Qualified Code(s): N18.9 - Chronic kidney disease, unspecified (8) Constipation Current Visit: Yes Status: Acute Assessment and plan: Patient complaining of constipation x9 days. No relief on colace. - Discontinue colace - Start senna plus Qualifiers: Qualified Code(s): K59.00 - Constipation, unspecified (9) HTN (hypertension) Current Visit: Yes Status: Chronic Assessment and plan: Continue home meds Qualifiers: Hypertension type: essential hypertension Qualified Code(s): I10 - Essential (primary) hypertension (10) DVT prophylaxis Current Visit: Yes Status: Acute Assessment and plan: Patient on heparin drip - Subjective Interval history: Pt seen and examined. He states that his shortness of breath has improved since admission but is still complaining of constipation, not having a bowel movement in 9 days. HE does admit to decreased oral intake during that time secondary to nausea, but has no abdominal pain or vomiting. He does confirm adverse reaction to potassium but is willing to try the pill form. - Constitutional Vitals: Temp Pulse Resp BP Pulse Ox 98.1 F 89 18 182/88 96 06/02/17 08:20 06/02/17 08:20 06/02/17 08:20 06/02/17 08:20 06/02/17 08:20 General appearance: Present: cooperative, pleasant, obese, answers questions appropriately - Head Head exam: Present: atraumatic, normocephalic - Eye Eye exam: Present: PERRL, conjuntiva pink, sclera anicteric - Neck Neck exam general surgery: Present: supple, trachea midline. Absent: lymphadenopathy - Respiratory Respiratory exam: Present: CTAB. Absent: accessory muscle use, rales, rhonchi, wheezes - Cardiovascular Cardiovascular exam: Present: irregular rhythm, +S1, +S2. Absent: diastolic murmur, gallop, rubs, systolic murmur - GI/Abdominal GI/Abdominal exam: Present: normal bowel sounds, soft, no peritoneal signs. Absent: distended, tenderness - Extremities Exam Extremities exam: Present: pedal edema (3+), warm, radial pulses palpable and symmetrical. Absent: calf tenderness, cyanotic - Neurological Exam Neurological exam: Present: alert, no focal deficits. Absent: facial droop, speech deficit - Skin Skin exam: Present: dry, intact Internal Medicine: Result - Labs CBC & Chem 7: 06/02/17 05:35 06/02/17 05:35 Labs: Short CBC 06/02/17 Range/Units 05:35 WBC 12.5 H (4.3-11.1) K/mcL Hgb 13.3 (12.9-16.9) g/dL Hct 40.0 (37.5-50.1) % Plt Count 147 (140-400) K/mcL Neutrophils # 9.9 H (1.6-8.9) K/mcL BMP 06/02/17 05:35 Sodium 135 L Potassium 2.9 L Chloride 93 L Carbon Dioxide 34 H BUN 29 H Creatinine 1.67 H Glucose 84 Calcium 9.9 Cardiac Enzymes 06/01/17 06/02/17 Range/Units 21:25 05:35 Troponin I 0.37 H* 0.37 H* (< 0.04) ng/mL Liver Function 06/02/17 Range/Units 05:35 Total Bilirubin 1.0 (0.3-1.0) mg/dL AST 30 (13-39) Units/L ALT 20 (7-52) Units/L Alkaline Phosphatase 61 (34-104) Units/L Albumin 2.8 L (3.5-5.7) g/dL - ABG Interpretation ABG results: PT/INR, D-dimer PT 13.5 Seconds (9.4-12.1) H 06/01/17 09:19 Consult Discharge Plan - Plan Referrals: Andrzej Vázquez DO [Primary Care Provider] -
[2017-06-02] MEDS: Heparin 25,000 UNIT/500 ML D5W 25,000 UNIT/500 ML BAG IVC SCH (09:23)
[2017-06-02] MEDS: Sennosides/Docusate Sodium TABLET PO SCH ×2 (10:13→21:27)
[2017-06-02] MEDS: Beclomethasone 80mcg MDI IH SCH ×2 (10:53→22:13)
[2017-06-02] MEDS: Ondansetron 4 MG/2 ML VIAL IVP PRN ×2 (12:03→20:07)
[2017-06-02] MEDS: Ipratropium/Albuterol Neb 3 ML IH PRN ×2 (15:52→22:13)
[2017-06-02] MEDS: Insulin DETEMIR 100 UNIT/ML X5UNITS SQ SCH (21:27)
[2017-06-03] MEDS: Levalbuterol Neb 0.63 MG/3 ML IH SCH ×4 (03:32→22:09)
[2017-06-03 06:20] LABS: Basophils % 0.3 %; Eosinophils # 0.1 K/mcL (0.0-0.6); Eosinophils % 0.9 %; Hematocrit 40.2 % (37.5-50.1); Hemoglobin 13.2 g/dL (12.9-16.9); Immature Granulocytes % 0.8 % (0-4); Lymphocytes # 0.7 K/mcL (0.6-4.6); Mean Corpuscular HGB Conc 32.8 g/dL (31.6-35.5); Mean Corpuscular Hemoglobin 31.7 pg (28.0-33.3); Mean Corpuscular Volume 96.4 fL (83.0-100.0); Mean Platelet Volume 10.6 fL (9.4-12.4); Monocytes # 1.2 K/mcL (0.0-1.3); Monocytes % 9.9 %; Neutrophils # 9.8 K/mcL (1.6-8.9); Platelet Count 147 K/mcL (140-400); Red Blood Count 4.17 M/mcL (4.19-5.50); Red Cell Distribution Width 13.2 % (11.5-14.5); Segmented Neutrophils % 82.1 %
[2017-06-03 06:45] LABS: Albumin 2.8 g/dL (3.5-5.7); Albumin/Globulin Ratio 0.8 (1.1-2.2); Bilirubin,Total 0.8 mg/dL (0.3-1.0); Calcium 9.8 mg/dL (8.6-10.3); Globulin 3.6 g/dL (2.4-3.5); Potassium 3.4 mEq/L (3.5-5.1); Total Protein 6.4 g/dL (6.4-8.9)
[2017-06-03] MEDS: Finasteride 5 MG TABLET PO SCH (08:41)
[2017-06-03] MEDS: Sennosides/Docusate Sodium TABLET PO SCH ×2 (08:41→21:30)
[2017-06-03] MEDS: Cholecalciferol (D-3) 1,000 UNIT TABLET PO SCH (08:41)
[2017-06-03] MEDS: Aspirin 81 MG TAB.CHEW PO SCH (08:41)
[2017-06-03] MEDS: Furosemide 40 MG/4 ML VIAL IVP SCH (08:42)
[2017-06-03] MEDS: Niacin (24 HR) 500 MG TAB.ER.24H PO SCH (08:42)
[2017-06-03] MEDS: Loratadine 10 MG TABLET PO SCH (08:42)
[2017-06-03] MEDS: Pantoprazole 40 MG VIAL IVP SCH (08:42)
[2017-06-03] MEDS: Insulin LISPRO 300 UNITS/3 ML VIAL SQ SCH ×4 (08:43→21:29)
[2017-06-03] MEDS: Levofloxacin 250 MG/50 ML 250 MG/50 ML BAG IVPB SCH (08:43)
[2017-06-03] MEDS ORDERED: Furosemide 40 MG/4 ML VIAL IVP SCH (08:44)
[2017-06-03] MEDS ORDERED: Saline Nasal Spray 44 ML BOTTLE NS PRN (08:53)
[2017-06-03] MEDS: Ondansetron 4 MG/2 ML VIAL IVP PRN (08:55)
[2017-06-03] MEDS: Ipratropium/Albuterol Neb 3 ML IH PRN (10:10)
[2017-06-03] MEDS: Beclomethasone 80mcg MDI IH SCH ×2 (10:10→22:09)
--- NOTE | 2017-06-03 10:11 | Internal Med Progress Note ---
<Epifanio Antonio - Last Filed: 06/03/17 14:02> Date of Encounter: 06/03/17 Time of Encounter: 10:10 - Assessment and plan (1) Acute exacerbation of CHF (congestive heart failure) Current Visit: Yes Status: Acute Assessment and plan: Clinically improving today with his breathing; continue diuretics with Lasix at lower dose in setting of elevated Cr and Metolazone Currently on fluid restriction 1.5 L Cardiology consulted, echocardiogram showed EF 65% with mild diastolic dysfunction Continue on BB; consider adding Aldactone upon discharge Qualifiers: Congestive heart failure type: diastolic Qualified Code(s): I50.33 - Acute on chronic diastolic (congestive) heart failure (2) Elevated troponin Current Visit: Yes Status: Acute Assessment and plan: Initial troponin of 0.37 on admission and remains elevated VQ scan low probability for PE Continue to trend troponin as it is increasing Cardio consulted, stress test pending (3) Atrial fibrillation Current Visit: Yes Status: Chronic Assessment and plan: PMHx of chronic A-fib, Cardiology consulted - On heparin drip and home beta justen - Continuous telemetry - Rate controlled currently, will continue to monitor Patient does have CHADSVASC of 5 (age, HTN, DM, CHF) but is not ideal candidate for superintendent terminal anticoagulation given his fall risk and adverse reaction when previously on blood thinners Qualifiers: Atrial fibrillation type: chronic Qualified Code(s): I48.2 - Chronic atrial fibrillation (4) CAD (coronary artery disease) Current Visit: Yes Status: Chronic Assessment and plan: No chest pain currently 4 vessel CABG in 1984 at [facility] 2 vessel CABG in 2005 at [facility] in [facility] with stent placement 2 years ago in [facility] Stress test pending Qualifiers: Coronary Disease-Associated Artery/Lesion type: unspecified vessel or lesion type [place] vs. transplanted heart: [place] heart Associated angina: angina presence unspecified Qualified Code(s): I25.10 - Atherosclerotic heart disease of [place] coronary artery without angina pectoris (5) Pneumonia Current Visit: Yes Status: Acute Assessment and plan: He did finish 4/7 day course of PO Levaquin and received a dose of IV Levaquin here Will discontinue antibiotics for now as patient has no signs of infection and cultures remain negative Qualifiers: Pneumonia type: due to unspecified organism Laterality: left Lung location: unspecified part of lung Qualified Code(s): J18.9 - Pneumonia, unspecified organism (6) Insulin dependent diabetes mellitus Current Visit: Yes Status: Chronic Assessment and plan: Continue patients daily insulin and low dose sliding scale insulin with hypoglycemic protocol. - BG checks before meals and at bedtime. A1c = 7.5 this admission (7) CKD (chronic kidney disease) Current Visit: Yes Status: Chronic Assessment and plan: Cr did elevated to 1.9 from 1.6 yesterday He is making good UOP, so will decrease Lasix from 40 IV BID to 20 Continue to monitor Cr, electrolytes, and avoid nephrotoxic agents Qualifiers: Chronic kidney disease stage: unspecified stage Qualified Code(s): N18.9 - Chronic kidney disease, unspecified (8) Constipation Current Visit: Yes Status: Acute Assessment and plan: Patient still has not had bowel movement in > week despite Senna plus Will add Mag citrate today and monitor for BM Qualifiers: Qualified Code(s): K59.00 - Constipation, unspecified (9) HTN (hypertension) Current Visit: Yes Status: Chronic Assessment and plan: Continue Lopressor, blood pressures stable since admission Qualifiers: Hypertension type: essential hypertension Qualified Code(s): I10 - Essential (primary) hypertension (10) DVT prophylaxis Current Visit: Yes Status: Acute Assessment and plan: Patient on heparin drip - Subjective Interval history: Pt seen and examined. He states his breathing is somewhat better but feels his nose is stuffed. He still has yet to have a bowel movement but denies being in any pain and has had flatus. No chest pain, fever, nausea, vomiting. - Constitutional Vitals: Temp Pulse Resp BP Pulse Ox 97.7 F 78 15 111/61 94 06/03/17 07:29 06/03/17 07:29 06/03/17 07:29 06/03/17 07:29 06/03/17 07:29 General appearance: Present: cooperative, pleasant, obese, answers questions appropriately - Head Head exam: Present: atraumatic, normocephalic - Eye Eye exam: Present: PERRL, conjuntiva pink, sclera anicteric - Neck Neck exam general surgery: Present: supple, trachea midline. Absent: lymphadenopathy - Respiratory Respiratory exam: Present: rales. Absent: accessory muscle use, rhonchi, wheezes - Cardiovascular Cardiovascular exam: Present: RRR, +S1, +S2. Absent: diastolic murmur, gallop, rubs, systolic murmur - GI/Abdominal GI/Abdominal exam: Present: normal bowel sounds, soft, no peritoneal signs. Absent: distended, tenderness - Extremities Exam Extremities exam: Present: pedal edema, warm, radial pulses palpable and symmetrical. Absent: calf tenderness, cyanotic - Neurological Exam Neurological exam: Present: alert, no focal deficits. Absent: facial droop, speech deficit - Skin Skin exam: Present: dry, intact Internal Medicine: Result - Labs CBC & Chem 7: 06/03/17 05:40 06/03/17 05:40 Labs: Short CBC 06/03/17 Range/Units 05:40 WBC 12.0 H (4.3-11.1) K/mcL Hgb 13.2 (12.9-16.9) g/dL Hct 40.2 (37.5-50.1) % Plt Count 147 (140-400) K/mcL Neutrophils # 9.8 H (1.6-8.9) K/mcL BMP 06/03/17 05:40 Sodium 132 L Potassium 3.4 L Chloride 90 L Carbon Dioxide 34 H BUN 31 H Creatinine 1.91 H Glucose 223 H Calcium 9.8 Cardiac Enzymes 06/02/17 Range/Units 10:51 Troponin I 0.41 H* (< 0.04) ng/mL Liver Function 06/03/17 Range/Units 05:40 Total Bilirubin 0.8 (0.3-1.0) mg/dL AST 30 (13-39) Units/L ALT 23 (7-52) Units/L Alkaline Phosphatase 58 (34-104) Units/L Albumin 2.8 L (3.5-5.7) g/dL - ABG Interpretation ABG results: PT/INR, D-dimer PT 13.5 Seconds (9.4-12.1) H 06/01/17 09:19 Consult Discharge Plan - Plan Referrals: Andrzej Vázquez DO [Primary Care Provider] - <Naga Ma - Last Filed: 06/03/17 16:05> Date of Encounter: 06/03/17 - Constitutional Vitals: Temp Pulse Resp BP Pulse Ox 97.5 F L 85 20 105/89 95 06/03/17 15:12 06/03/17 15:12 06/03/17 15:12 06/03/17 15:12 06/03/17 15:12 Internal Medicine: Result - Labs CBC & Chem 7: 06/03/17 05:40 06/03/17 05:40 Labs: Short CBC 06/03/17 Range/Units 05:40 WBC 12.0 H (4.3-11.1) K/mcL Hgb 13.2 (12.9-16.9) g/dL Hct 40.2 (37.5-50.1) % Plt Count 147 (140-400) K/mcL Neutrophils # 9.8 H (1.6-8.9) K/mcL BMP 06/03/17 05:40 Sodium 132 L Potassium 3.4 L Chloride 90 L Carbon Dioxide 34 H BUN 31 H Creatinine 1.91 H Glucose 223 H Calcium 9.8 Liver Function 06/03/17 Range/Units 05:40 Total Bilirubin 0.8 (0.3-1.0) mg/dL AST 30 (13-39) Units/L ALT 23 (7-52) Units/L Alkaline Phosphatase 58 (34-104) Units/L Albumin 2.8 L (3.5-5.7) g/dL - ABG Interpretation ABG results: PT/INR, D-dimer PT 13.5 Seconds (9.4-12.1) H 06/01/17 09:19 - Attending Attestation I personally interviewed and examined this patient. I reviewed all labs studies. I agree with the findings, assessment, and plan of , internal medicine resident. Patient continues on Levaquin for acquired pneumonia. He underwent a cardiac stress test today with no obvious ischemia noted. Cardiology input is appreciated. He continues to diuresis for congestive heart failure, acute on chronic diastolic in nature. We did reduce his Lasix due to increasing creatinine. However if he does not continue to improve we may need to actually increase his Lasix due to decreased GFR to achieve a better diuresis , with hopes that this will improve cardiac output, and renal function as a result. Allergy input is appreciated.
--- NOTE | 2017-06-03 10:57 | Cardiology Progress Note ---
<AurelioaliciaCamilla dowling - Last Filed: 06/03/17 16:29> Date of Encounter: 06/03/17 Time of Encounter: 10:49 Assessment and Plan (1) Acute exacerbation of CHF (congestive heart failure) Current Visit: Yes Status: Acute Patient with clinical appearance of hypervolemia. Patient denies compliance with lifestyle modifications. BNP- 538, VQ (06/01/2107)scan low probability for PE, CXR () low lung volumes with bibasilar atelectasis, cardiomegaly. -Xopenex, supplemental o2 with titration. SPo2 monitoring, continuous cardiac telemetry. -Fluid restriction, monitor I&O and daily weights. -Continue home meds including BB, zaroxolyn, and ASA. 06/02/2017: -Echocardiogram 06/02/2017 LVEF 65%, mild left ventricular diastolic dysfunction , RV not well visualized, normal functioning bioprosthetic aortic valve, mild mitral valve regurgitation, no pulmonary hyptertension. 06/03/2017: HR labile and irregularly irregular- rate controlled. Patient with SOB, on 2L NC. -FU nasal swab for influenza. -Patient able to lay flat, non-exercise nuclear stress test: pharmacologic stress ECG is non-diagnostic for ischemia due to baseline, non-specific ST and T changes, Gated EF >70%, perfusion imaging was negative for ischemia or infarct. -Creatinine 1.91 today stable (1.96 on admission). -Creatinine Clearance 18, will start on Eliquis 2.5mg BID. Stop Heparin Drip. -DC IV lasix, start oral 20mg lasix PO BID. -FU as an outpatient in 2-4 weeks. Qualifiers: Congestive heart failure type: diastolic Qualified Code(s): I50.33 - Acute on chronic diastolic (congestive) heart failure (2) Elevated troponin Current Visit: Yes Status: Acute Troponins 0.31 initially, 0.36 second set, 0.37, 0.37, 0.41 yesterday). VQ scan negative to r/o PE secondary for reported pleuritic chest pain. ECG 06/01/2107 afib with RVR, RBBB and PVCs. -Agree with heparin drip. -Will continue to monitor. -As PNA resolves and patient improves clinically, we will likely proceed with stress testing. -06/03: Stress test/Perfusion imaging negative for ischemia or infart. -FU as an outpatient. (3) Atrial fibrillation Current Visit: Yes Status: Chronic PMHx of chronic atrial fibrillation. -EKG on 06/01/2017 shows atrial fibrillation with RVR, RBBB, PVC's -continuous cardiac telemetry -Rate controlled. Will continue to monitor. -Will continue home BB, start Eliquis. Qualifiers: Atrial fibrillation type: chronic Qualified Code(s): I48.2 - Chronic atrial fibrillation (4) CAD (coronary artery disease) Current Visit: Yes Status: Chronic 4 vessel CABG in 1984 at [facility] 2 vessel CABG in 2005 at [facility] in [facility] with stent placement 2 years ago in [facility] -Stress testing/Perfusion imaging negative for ishemia or infarct. Qualifiers: Coronary Disease-Associated Artery/Lesion type: unspecified vessel or lesion type [place] vs. transplanted heart: [place] heart Associated angina: angina presence unspecified Qualified Code(s): I25.10 - Atherosclerotic heart disease of [place] coronary artery without angina pectoris (5) Pneumonia Current Visit: Yes Status: Acute IV levaquin. Patient with YOSHI on CKD. -Management per primary team. Qualifiers: Pneumonia type: due to unspecified organism Laterality: left Lung location: unspecified part of lung Qualified Code(s): J18.9 - Pneumonia, unspecified organism Discussion w patient/family: The assessment and plan as outlined above was discussed with the patient and/or family members who expressed understanding and agreement. All questions were answered. Thank you for involving us in the care of your patient. Please call with any questions. Subjective Principal diagnosis: NSTEMI/Acute exacerbation of CHF/CAD, Afib Interval history: Mr. Steel is a 87 year old male with past medical history of asthma, atrial fibrillation, congestive heart failure, diabetes, hypertension, coronary artery disease, aortic valve replacement, CABG 2, and stent presented to [facility] on 2017 with chief complaint of SOB and dyspnea for 1 week. Patient states he is still having difficulty breathing. States he has nasal congestion and cough. Unclear if able to lay flat. Objective Vital Signs, Last 4 Hours Temp Pulse Resp BP Pulse Ox 06/03/17 10:10 14 96 06/03/17 07:29 97.7 F 78 15 111/61 94 General: Conversant, Other (mild distress) HEENT: Atraumatic, Normocephaly, Mucus Membranes Moist Neck: No JVD Cardiac: Other (Rate labile and irregularly irregular) Lungs: Other (diminished air movement at bilateral bases, wheezing and rales noted.) Neuro: Alert and responsive, No focal deficits noted Skin: No rashes noted on visualized skin Extremities: No Clubbing, No Cyanosis, Other (4+ pitting edema) Results 06/03/17 05:40 06/03/17 05:40 Lab Results 06/02/17 06/02/17 06/02/17 10:51 14:14 20:10 WBC Hgb Hct Plt Count APTT 63.9 H 71.0 H Sodium Potassium Chloride Carbon Dioxide BUN Creatinine Glucose Calcium Total Bilirubin AST ALT Alkaline Phosphatase Troponin I 0.41 H* 06/03/17 06/03/17 05:40 05:40 WBC 12.0 H Hgb 13.2 Hct 40.2 Plt Count 147 APTT Sodium 132 L Potassium 3.4 L Chloride 90 L Carbon Dioxide 34 H BUN 31 H Creatinine 1.91 H Glucose 223 H Calcium 9.8 Total Bilirubin 0.8 AST 30 ALT 23 Alkaline Phosphatase 58 Troponin I Consult Discharge Plan - Plan Referrals: Andrzej Vázquez, [Primary Care Provider] - <Azeem Brenner - Last Filed: 06/03/17 21:18> Date of Encounter: 06/03/17 Assessment and Plan Discussion w patient/family: The assessment and plan as outlined above was discussed with the patient and/or family members who expressed understanding and agreement. All questions were answered. Thank you for involving us in the care of your patient. Please call with any questions. Results 06/03/17 05:40 06/03/17 05:40 Lab Results 06/03/17 06/03/17 06/03/17 05:40 05:40 20:11 WBC 12.0 H Hgb 13.2 Hct 40.2 Plt Count 147 APTT 57.6 H Sodium 132 L Potassium 3.4 L Chloride 90 L Carbon Dioxide 34 H BUN 31 H Creatinine 1.91 H Glucose 223 H Calcium 9.8 Total Bilirubin 0.8 AST 30 ALT 23 Alkaline Phosphatase 58 - Attending Attestation I examined this patient and my medical decision-making was reviewed with the Resident Physician. I agree with the documented findings, disposition and treatment plan as described except to the extent set forth below. CC: shortness of breath Pt reports shortness of breath has improved, cough no longer productive. He wants out of bed, would like to begin increased activity. PE: reviewed as above. IMP: 1. Elevated troponin due to demand perfusion mismatch, stress test normal, no inducible ischemia 2. Chronic atrial fibrillaition with controlled ventricular response 3. Pneumonia - improving Rec: increase activity as tolerated with PT/OT
[2017-06-03] MEDS: Fluticasone Propionate Nasal 50 MCG/SPRAY BOTTLE NS SCH (12:22)
[2017-06-03] MEDS ORDERED: Regadenoson 0.4 MG/5 ML SYRINGE IVP ONE (12:33)
[2017-06-03] MEDS: Heparin 25,000 UNIT/500 ML D5W 25,000 UNIT/500 ML BAG IVC SCH (15:17)
--- NOTE | 2017-06-03 18:04 | Electrocardiograph Report ---
MagaliTorqeedo Test Date: 2017-06-01 Pat Name: Sujit Steel Department: 102 Room: 2SH26 Gender: M Silk Weaver: : 1930 Requested By: Jw Simon Order Number: [id number] Reading MD: Josué Coh MD Measurements Intervals [place] Rate: 105 P: MA: 0 QRS: 73 QRSD: 137 T: -14 QT: 347 QTc: 408 Interpretive Statements ATRIAL FIBRILLATION WITH RAPID VENTRICULAR RESPONSE WITH ABERRANT CONDUCTION OR VENTRICULAR PREMATURE COMPLEXES RIGHT BUNDLE BRANCH BLOCK [120+ ms QRS DURATION, UPRIGHT V1, 40+ ms S IN I/aVL/V4/V5/V6] WARNING: DATA QUALITY MAY AFFECT INTERPRETATION Electronically Signed On 06-03-2017 18:03:22 EST by Josué Cho MD
[2017-06-03] MEDS: Furosemide 20 MG TABLET PO SCH (21:29)
[2017-06-03] MEDS: Apixaban 5 MG TABLET PO SCH (21:29)
[2017-06-03] MEDS: Insulin DETEMIR 100 UNIT/ML X5UNITS SQ SCH (21:30)
[2017-06-04] MEDS: Levalbuterol Neb 0.63 MG/3 ML IH SCH ×3 (04:26→15:45)
[2017-06-04 05:05] LABS: Basophils # 0.1 K/mcL (0.0-0.2); Basophils % 0.5 %; Eosinophils # 0.1 K/mcL (0.0-0.6); Eosinophils % 1.2 %; Hematocrit 38.6 % (37.5-50.1); Hemoglobin 13.1 g/dL (12.9-16.9); Immature Granulocytes % 0.7 % (0-4); Lymphocytes # 0.8 K/mcL (0.6-4.6); Lymphocytes % 6.9 %; Mean Corpuscular HGB Conc 33.9 g/dL (31.6-35.5); Mean Corpuscular Hemoglobin 32.3 pg (28.0-33.3); Mean Corpuscular Volume 95.1 fL (83.0-100.0); Mean Platelet Volume 10.5 fL (9.4-12.4); Monocytes % 8.6 %; Platelet Count 141 K/mcL (140-400); Red Blood Count 4.06 M/mcL (4.19-5.50); Red Cell Distribution Width 13.2 % (11.5-14.5); Segmented Neutrophils % 82.1 %
[2017-06-04] MEDS: Furosemide 20 MG TABLET PO SCH (05:46)
[2017-06-04 06:51] LABS: Albumin 2.7 g/dL (3.5-5.7); Albumin/Globulin Ratio 0.8 (1.1-2.2); Bilirubin,Total 0.8 mg/dL (0.3-1.0); Calcium 10.2 mg/dL (8.6-10.3); Globulin 3.2 g/dL (2.4-3.5); Potassium 3.8 mEq/L (3.5-5.1); Total Protein 5.9 g/dL (6.4-8.9)
[2017-06-04 06:53] VITALS: BP 112/65
--- NOTE | 2017-06-04 08:11 | Discharge Summary ---
<Epifanio Antonio - Last Filed: 06/04/17 13:56> Date of Encounter: 06/04/17 Time of Encounter: 08:06 - Discharge Diagnosis (1) Acute exacerbation of CHF (congestive heart failure) Priority: Primary Status: Acute Qualifiers: Congestive heart failure type: diastolic Qualified Code(s): I50.33 - Acute on chronic diastolic (congestive) heart failure (2) Elevated troponin Priority: Secondary Status: Acute (3) Atrial fibrillation Priority: Secondary Status: Chronic Qualifiers: Atrial fibrillation type: chronic Qualified Code(s): I48.2 - Chronic atrial fibrillation (4) CAD (coronary artery disease) Priority: Secondary Status: Chronic Qualifiers: Coronary Disease-Associated Artery/Lesion type: unspecified vessel or lesion type [place] vs. transplanted heart: [place] heart Associated angina: angina presence unspecified Qualified Code(s): I25.10 - Atherosclerotic heart disease of [place] coronary artery without angina pectoris (5) Pneumonia Priority: Secondary Status: Acute Qualifiers: Pneumonia type: due to unspecified organism Laterality: left Lung location: unspecified part of lung Qualified Code(s): J18.9 - Pneumonia, unspecified organism (6) Insulin dependent diabetes mellitus Priority: Secondary Status: Chronic (7) CKD (chronic kidney disease) Priority: Secondary Status: Chronic Qualifiers: Chronic kidney disease stage: unspecified stage Qualified Code(s): N18.9 - Chronic kidney disease, unspecified (8) Constipation Priority: Secondary Status: Acute Qualifiers: Constipation type: unspecified constipation type Qualified Code(s): K59.00 - Constipation, unspecified (9) HTN (hypertension) Priority: Secondary Status: Chronic Qualifiers: Hypertension type: essential hypertension Qualified Code(s): I10 - Essential (primary) hypertension (10) DVT prophylaxis Priority: Secondary Status: Acute - Discharge Medications Prescriptions: Apixaban [Eliquis] 2.5 mg PO BID #30 tablet Furosemide [Lasix] 40 mg PO BID #30 tablet Home Medications: Albuterol Sulfate [Proventil Hfa] 2 puff IH Q4H PRN 06/01/17 [History] Aspirin 81 mg PO DAILY 06/01/17 [History] Atorvastatin Calcium [Lipitor] 20 mg PO HS 06/01/17 [History] Cetirizine HCl [Zyrtec] 10 mg PO DAILY 06/01/17 [History] Cholecalciferol (Vitamin D3) [Vitamin D3] 8,000 unit PO DAILY 06/01/17 [History] Dutasteride [Avodart] 0.5 mg PO DAILY 06/01/17 [History] Ferrous Sulfate 325 mg PO TUFR 06/01/17 [History] Fluticasone Propionate [Flovent Hfa] 1 puff IH BID 06/01/17 [History] Glimepiride [Amaryl] 8 mg PO DAILY 06/01/17 [History] Insulin ASPART [Novolog Flexpen] 0 unit SQ TID 06/01/17 [History] Insulin Glargine,Hum.rec.anlog [Lantus Solostar] 15 unit SQ HS 06/01/17 [History ] Ipratropium/Albuterol Neb [Duoneb] 3 ml IH Q6H PRN 06/01/17 [History] Levothyroxine [Synthroid] 88 mcg PO 0630 06/01/17 [History] Linagliptin [Tradjenta] 5 mg PO DAILY 06/01/17 [History] Liothyronine Sodium [Cytomel] 5 mcg PO DAILY 06/01/17 [History] Metoprolol [Lopressor] 25 mg PO BID 06/01/17 [History] Montelukast [Singulair] 10 mg PO DAILY 06/01/17 [History] Niacin [Niaspan] 1,000 mg PO DAILY 06/01/17 [History] Replenex 1 tab PO DAILY 06/01/17 [History] metOLazone [Zaroxolyn] 2.5 mg PO MOTH 06/01/17 [History] Apixaban [Eliquis] 2.5 mg PO BID #30 tablet 06/04/17 [Rx] Furosemide [Lasix] 40 mg PO BID #30 tablet 06/04/17 [Rx] Allergies/Adverse Reactions: 3 Allergy/AdvReac Type Severity Reaction Status Date / Time potassium AdvReac See Verified 06/01/17 15:11 Comments Procedures/tests Complete & Pending: Procedures Performed prior 72 hours Category Date Time Status NM annabelle perf SPECT multi [NM] Routine Exams 06/03/17 12:01 Taken SP pharm nuclear stress Routine Y 06/03/17 12:01 Completed Date of admission: 06/01/17 16:47 Primary care physician: Andrzej Vázquez, Discharging clinician: Epifanio Antonio Anticipated date of discharge: 06/04/17 - Patient Status Disposition: Transfer SNF Condition: Fair Functional capacity at discharge: independent ambulation Overall status at discharge: patient is progressing back to baseline - Discharge Instructions Instructions: Furosemide (By mouth), Apixaban (By mouth), Heart Failure (DC), Pneumonia (DC) Follow Up With: Andrzej Vázquez DO [Primary Care Provider] - (possible ecf) [facility] [Provider Group] Additional Instructions: Please follow up with your PCP and electronic parts salesperson within a week. If develop fever, worsening shortness of breath or chest pain, please return to the ED Take double your dose of Lasix for your CHF and start Eliquis for your AFib - Diet and Activity Activity: increase activity as tolerated Diet: advance to your usual diet ( ) Hospital course: Mr. Steel is a 87 year old male who presented with shortness of breath. He was diagnosed with PNA by his PCP and had completed 4 days of PO Levaquin. He complained of increased SOB along with swelling of his lower extremities. He did have Lasix and Zaroxlyn at home for history of diastolic CHF. He was given 40 IV Lasix BID and put on fluid restriction and his swelling did improve drastically after one day. Cardiology was consulted as he did have elevation in troponin of 0.31 --> 0.41 and performed a stress test which did not show ischemic changes. He also had an echocardiogram which showed EF of 65% with mild diastolic dysfunction without any pulmonary hypertension. Today, patient's breathing is very well and he has no complaints of pain anywhere. He was evaluated by PT/OT who recommended SNF placement and he will be going to [facility] pending social work approval. He did not have any signs of pneumonia and did receive an additional day of IV Levaquin. He will be going home on Eliquis for his AFib and increase his Lasix to 40 PO BID per cardiology recommendations. - Time Spent with Patient Total time spent providing and/or coordinating discharge services: Greater than 30 minutes - Constitutional Vitals: Temp Pulse Resp BP Pulse Ox 98.0 F 69 18 112/65 97 06/04/17 06:50 06/04/17 06:50 06/04/17 06:50 06/04/17 06:50 06/04/17 06:50 General appearance: Present: cooperative, pleasant, obese, answers questions appropriately - Head Head exam: Present: atraumatic, normocephalic - Eye Eye exam: Present: PERRL, conjuntiva pink, sclera anicteric Pupils: Present: PERRL - Neck Neck exam general surgery: Present: supple, trachea midline. Absent: lymphadenopathy - Respiratory Respiratory exam: Present: CTAB. Absent: accessory muscle use, rales, rhonchi, wheezes - Cardiovascular Cardiovascular exam: Present: RRR, +S1, +S2. Absent: diastolic murmur, gallop, rubs, systolic murmur - GI/Abdominal GI/Abdominal exam: Present: normal bowel sounds, soft, no peritoneal signs. Absent: distended, tenderness - Extremities Exam Extremities exam: Present: pedal edema, warm, radial pulses palpable and symmetrical. Absent: calf tenderness, cyanotic - Neurological Exam Neurological exam: Present: alert, no focal deficits. Absent: facial droop, speech deficit - Skin Skin exam: Present: dry, intact <Naga Ma - Last Filed: 06/04/17 14:36> Date of Encounter: 06/04/17 Procedures/tests Complete & Pending: Procedures Performed prior 72 hours Category Date Time Status NM annabelle perf SPECT multi [NM] Routine Exams 06/03/17 12:01 Taken SP pharm nuclear stress Routine Y 06/03/17 12:01 Completed Date of admission: 06/01/17 16:47 Primary care physician: Andrzej Vázquez, Hospital course: Mr. Steel is a 87 year old male - Time Spent with Patient Total time spent providing and/or coordinating discharge services: - Constitutional Vitals: Temp Pulse Resp BP Pulse Ox 98.0 F 69 18 112/65 97 06/04/17 06:50 06/04/17 06:50 06/04/17 10:15 06/04/17 06:50 06/04/17 10:15 - Attending Attestation I personally interviewed and examined this patient. I agree with the findings, assessment, and plan of , internal medicine resident. The etiology of input is appreciated as well. She will continue on oral Lasix as well as eloquent switches started for his atrial fibrillation. We did not continue antibiotics as he did not show any further signs of pneumonia. He otherwise was improved and deemed stable for discharge to a nursing facility. He will need close follow-up. He is seeing cardiology in 2 weeks. All else as outlined per discharge summary and my input is reflected in this note. Condition discharge stable. 43 Min spent on discharge and coordination of care
--- NOTE | 2017-06-04 08:24 | Physician Discharge Referral ---
ExtendedCare Referral Info Transfer To: [facility] Provider in Charge: Dr. Ma Provider in Charge after Transfer: PCP Institutional Level of Care: Skilled - Diagnosis (1) Acute exacerbation of CHF (congestive heart failure) Priority: Primary Status: Acute (2) Elevated troponin Priority: Secondary Status: Acute (3) Atrial fibrillation Priority: Secondary Status: Chronic (4) CAD (coronary artery disease) Priority: Secondary Status: Chronic (5) Pneumonia Priority: Secondary Status: Acute (6) Insulin dependent diabetes mellitus Priority: Secondary Status: Chronic (7) CKD (chronic kidney disease) Priority: Secondary Status: Chronic (8) Constipation Priority: Secondary Status: Acute (9) HTN (hypertension) Priority: Secondary Status: Chronic (10) DVT prophylaxis Priority: Secondary Status: Acute - Transfer Medications Prescriptions: Apixaban [Eliquis] 2.5 mg PO BID #30 tablet Furosemide [Lasix] 40 mg PO BID #30 tablet Home Medications: Albuterol Sulfate [Proventil Hfa] 2 puff IH Q4H PRN 06/01/17 [History] Aspirin 81 mg PO DAILY 06/01/17 [History] Atorvastatin Calcium [Lipitor] 20 mg PO HS 06/01/17 [History] Cetirizine HCl [Zyrtec] 10 mg PO DAILY 06/01/17 [History] Cholecalciferol (Vitamin D3) [Vitamin D3] 8,000 unit PO DAILY 06/01/17 [History] Dutasteride [Avodart] 0.5 mg PO DAILY 06/01/17 [History] Ferrous Sulfate 325 mg PO TUFR 06/01/17 [History] Fluticasone Propionate [Flovent Hfa] 1 puff IH BID 06/01/17 [History] Glimepiride [Amaryl] 8 mg PO DAILY 06/01/17 [History] Insulin ASPART [Novolog Flexpen] 0 unit SQ TID 06/01/17 [History] Insulin Glargine,Hum.rec.anlog [Lantus Solostar] 15 unit SQ HS 06/01/17 [History ] Ipratropium/Albuterol Neb [Duoneb] 3 ml IH Q6H PRN 06/01/17 [History] Levothyroxine [Synthroid] 88 mcg PO 0630 06/01/17 [History] Linagliptin [Tradjenta] 5 mg PO DAILY 06/01/17 [History] Liothyronine Sodium [Cytomel] 5 mcg PO DAILY 06/01/17 [History] Metoprolol [Lopressor] 25 mg PO BID 06/01/17 [History] Montelukast [Singulair] 10 mg PO DAILY 06/01/17 [History] Niacin [Niaspan] 1,000 mg PO DAILY 06/01/17 [History] Replenex 1 tab PO DAILY 06/01/17 [History] metOLazone [Zaroxolyn] 2.5 mg PO MOTH 06/01/17 [History] Apixaban [Eliquis] 2.5 mg PO BID #30 tablet 06/04/17 [Rx] Furosemide [Lasix] 40 mg PO BID #30 tablet 06/04/17 [Rx] Allergies/Adverse Reactions: 3 Allergy/AdvReac Type Severity Reaction Status Date / Time potassium AdvReac See Verified 06/01/17 15:11 Comments - Respiratory Orders Oxygen / L per min Smoking Cessation: Smoking cessation has been advised. For more information, call the [employer] Quit Line at 1-600-PHLL-NOW. - Ancillary Orders May use pressure relief devices daily prn, May go on ROME w/family/respon constitution party w /meds at nurse discretion PRN, May consult with Dentist, Water Sponger, Bean Sorter PRN - Advance Directives Code Status: DNR-Arrest/Don't Intubate - Mobility Orders Chair - Rehabiliation Orders Rehab Potential: Fair Rehab Orders: Sternal Precautions, ROM Exercises, Evaluation for Physical Therapy, Evaluation for Occupational Therapy - Treatments Skin tear care topically daily PRN per policy, May check for fecal impaction rectally daily PRN, Fleet enema rectally every other day PRN cleansing purposes - Diet Orders Cardiac CERTIFICATION: I certify that the transfer of the above named patient to an Extended Care Facility is necessary for the continuing treatment of the diagnosis listed. The above information is true and accurate reflection of patient's current condition. Confidential - Redisclosure prohibited without a patient's written consent.
[2017-06-04] MEDS: Insulin LISPRO 300 UNITS/3 ML VIAL SQ SCH ×2 (09:13→12:06)
[2017-06-04] MEDS: Loratadine 10 MG TABLET PO SCH (09:15)
[2017-06-04] MEDS: Aspirin 81 MG TAB.CHEW PO SCH (09:15)
[2017-06-04] MEDS: Apixaban 5 MG TABLET PO SCH (09:15)
[2017-06-04] MEDS: Sennosides/Docusate Sodium TABLET PO SCH (09:16)
[2017-06-04] MEDS: Cholecalciferol (D-3) 1,000 UNIT TABLET PO SCH (09:17)
[2017-06-04] MEDS: Finasteride 5 MG TABLET PO SCH (09:17)
[2017-06-04] MEDS: Niacin (24 HR) 500 MG TAB.ER.24H PO SCH (09:17)
[2017-06-04] MEDS: Beclomethasone 80mcg MDI IH SCH (10:15)
--- NOTE | 2017-06-04 11:17 | Cardiology Progress Note ---
<KarenCamilla Ava - Last Filed: 06/04/17 11:27> Date of Encounter: 06/04/17 Time of Encounter: 11:15 Assessment and Plan (1) Acute exacerbation of CHF (congestive heart failure) Status: Acute -VQ (06/01/2107)scan low probability for PE, CXR () low lung volumes with bibasilar atelectasis, cardiomegaly. -Echocardiogram 06/02/2017 LVEF 65%, mild left ventricular diastolic dysfunction , RV not well visualized, normal functioning bioprosthetic aortic valve, mild mitral valve regurgitation, no pulmonary hyptertension. -Non-exercise nuclear stress test (06/03/2017): pharmacologic stress ECG is non- diagnostic for ischemia due to baseline, non-specific ST and T changes, Gated EF >70%, perfusion imaging was negative for ischemia or infarct. 06/04/2017: HR labile and irregularly irregular- rate controlled. Patient with SOB, on 2L NC. -Influenza testing negatvie -Creatinine trending downwards today to 1.76. (1.96 on admission). -Patient to be discharged home on eliquis 2.5 mg PO BID, increase home lasix dose from 40mg PO QD to 40mg PO BID -FU as an outpatient in 2 weeks- Will coordinate. Cardiology signing off. Please feel free to call with any addition questions or information. Qualifiers: Congestive heart failure type: diastolic Qualified Code(s): I50.33 - Acute on chronic diastolic (congestive) heart failure (2) Elevated troponin Status: Acute Troponins 0.31 initially, 0.36 second set, 0.37, 0.37, 0.41 (06/02)). VQ scan negative to r/o PE secondary for reported pleuritic chest pain. ECG 06/01/2107 afib with RVR, RBBB and PVCs. -06/03: Stress test/Perfusion imaging negative for ischemia or infart. -FU as an outpatient in 2 weeks. (3) Atrial fibrillation Status: Chronic PMHx of chronic atrial fibrillation. -EKG on 06/01/2017 shows atrial fibrillation with RVR, RBBB, PVC's -continuous cardiac telemetry -Rate controlled. Will continue to monitor. -Will continue home BB, start Eliquis. -FU as outpatient in 2 weeks Qualifiers: Atrial fibrillation type: chronic Qualified Code(s): I48.2 - Chronic atrial fibrillation (4) CAD (coronary artery disease) Status: Chronic 4 vessel CABG in 1984 at [facility] 2 [place] [facility] [place] [facility] [place] [facility] [place] -Stress testing/Perfusion imaging negative for ishemia or infarct. Qualifiers: Coronary Disease-Associated Artery/Lesion type: unspecified vessel or lesion type [place] vs. transplanted heart: [place] heart Associated angina: angina presence unspecified Qualified Code(s): I25.10 - Atherosclerotic heart disease of [place] coronary artery without angina pectoris (5) Pneumonia Status: Acute IV levaquin. Patient with YOSHI on CKD. -Management per primary team. Qualifiers: Pneumonia type: due to unspecified organism Laterality: left Lung location: unspecified part of lung Qualified Code(s): J18.9 - Pneumonia, unspecified organism Discussion w patient/family: The assessment and plan as outlined above was discussed with the patient and/or family members who expressed understanding and agreement. All questions were answered. Thank you for involving us in the care of your patient. Please call with any questions. Subjective Principal diagnosis: NSTEMI/Acute exacerbation of CHF/CAD, Afib Interval history: Mr. Steel is a 87 year old male with past medical history of asthma, atrial fibrillation, congestive heart failure, diabetes, hypertension, coronary artery disease, aortic valve replacement, CABG 2, and stent presented to [facility] on 2017 with chief complaint of SOB and dyspnea for 1 week. Patient states his shortness of breath is improving significantly. He feels better. He expresssed understanding of the risks vs benefits with starting Eliquis for anticoagulation All of his questions were addressed. Patient committed to watching his sodium intake. Objective General: Conversant, No Apparent Distress HEENT: Normocephaly Cardiac: Reg Rate and Rhythm, Normal S1 and S2 Lungs: Normal Breath Sounds, Other (mild wheezing) Neuro: Alert and responsive Abdomen: Soft Skin: No rashes noted on visualized skin Musculoskeletal: No Chest Wall Tenderness Extremities: No Clubbing, No Cyanosis, Other (4+ pitting edema) Results 06/04/17 03:20 06/04/17 03:20 Lab Results 06/03/17 06/04/17 06/04/17 20:11 03:20 03:20 WBC 12.2 H Hgb 13.1 Hct 38.6 Plt Count 141 APTT 57.6 H Sodium 134 L Potassium 3.8 Chloride 93 L Carbon Dioxide 33 H BUN 30 H Creatinine 1.76 H Glucose 132 H Calcium 10.2 Total Bilirubin 0.8 AST 27 ALT 20 Alkaline Phosphatase 55 Consult Discharge Plan - Plan Instructions: Furosemide (By mouth), Apixaban (By mouth), Heart Failure (DC), Pneumonia (DC) Additional Instructions: Please follow up with your PCP and in store demonstrator within a week. If develop fever, worsening shortness of breath or chest pain, please return to the ED Take double your dose of Lasix for your CHF and start Eliquis for your AFib Referrals: [facility] [Provider Group] Andrzej Vázquez DO [Primary Care Provider] - (possible ecf) Prescriptions: Apixaban [Eliquis] 2.5 mg PO BID #30 tablet Furosemide [Lasix] 40 mg PO BID #30 tablet <Azeem Brenner - Last Filed: 06/05/17 18:16> Date of Encounter: 06/04/17 Time of Encounter: 17:00 Assessment and Plan Discussion w patient/family: The assessment and plan as outlined above was discussed with the patient and/or family members who expressed understanding and agreement. All questions were answered. Thank you for involving us in the care of your patient. Please call with any questions. Results 06/04/17 03:20 06/04/17 03:20 - Attending Attestation I examined this patient and my medical decision-making was reviewed with the Resident Physician. I agree with the documented findings, disposition and treatment plan as described except to the extent set forth below. CC: Shortness of breath Pt reports shortness of breath has improved, now able to ambulate without difficulty. He is anxious to go home. PE: Reviewd above, agree IMP: 1. Atrial fibrillation with now controlled ventricular response, started on Eliquis for primary stroke risk reduction, understands and accepts increased risk of bleeding for decreased risk of stroke. 2. CAD - severe triple vessel dx, post CABG x 2, with normal stress imaging 06/03 with normal EF, suspect elevated troponin due to demand perfusion mismatch, does not have a demonstrable ischemic substrate. 3. Acute on Chronic diastolic heart failure, better compensated on current meds. Rec: Pt is at low cardiovascular risk for hospital discharge, expect discharge later today, will follow in office in two to three weeks, sooner if symptoms change.
[2017-06-04] MEDS: Fluticasone Propionate Nasal 50 MCG/SPRAY BOTTLE NS SCH (11:33)
[2017-06-04] MEDS ORDERED: Furosemide 20 MG TABLET PO SCH (17:00)
== END 2017-06-04 15:48 | DRG 291 ==
LOC: EMEROO 08:42 → 2SOUTHHOLD 08:42 → 2ANU 06-03 19:39
PROVIDERS: ADMIT Hospitalist; ATTEND Hospitalist

== ENCOUNTER 2017-10-09 03:32 | Observation (INO) ==
[2017-10-09] MEDS ORDERED: Ondansetron 4 MG/2 ML VIAL IVP ONE (04:04)
--- NOTE | 2017-10-09 04:09 | Emergency Department Note ---
Disposition Clinical Impression: Syncope Qualifiers: Syncope type: unspecified Qualified Code(s): R55 - Syncope and collapse Disposition: Admitted As Inpatient Condition: Undetermined Referrals: Andrzej Vázquez DO [Primary Care Provider] - Forms: ED Satisfaction Letter, Work/School Release General Adult HPI - General Chief complaint: ED General Medical Stated complaint: fall Time Seen by Provider: 10/09/17 03:34 Source: patient, family, EMS Mode of arrival: EMS Limitations: no limitations Nursing Notes Reviewed: Yes Vital Signs Reviewed: Yes - History of Present Illness HPI Narrative: 87-year-old male with a history of diabetes mellitus, hypertension, CABG 2, LHC , asthma, CHF, CAD, aortic valve replacement, hyperlipidemia, A. fib presents to the emergency department after having a fall this evening. Patient states he was getting out of bed to go the bathroom when he became dizzy, the next thing he knew he was waking up on the floor. Patient thinks he may have fainted , after fall patient has been very nauseous, feeling weak. Patient is unsure if he was fully erect before he fell, if he were taking steps, or if he was still in the process of standing up. I stated she heard a commotion noticed that patient had fallen, he landed on a tile floor, he was laying on his back and she noticed that it took him a second to "come back around". She stated his eyes are open by he was not able to speak for some time, when he did start speaking he was alert and oriented and at baseline.. She states patient has suffered quite a bit of weight loss in the last 5-6 months and has had serial appetite. Her first concern was maybe his sugar was low. She called the ambulance for assistance in getting him up. Patient does complain of chronic shortness of breath, however this has not increased any time recently, no recent illnesses, no increase in edema (has chronic bilateral lower extremity edema). Patient denies any new complaints prior to standing up out of bed. Patient denies fever, chills, vomiting, consultation, diarrhea, chest pain. Patient is not on any blood thinners, does take an aspirin 81 mg Onset (ago): Just ELECTRONIC TESTER Location: head Radiation: non-radiation Pain Scale: 0 Treatments Prior to Arrival: none - Related Data Home Medications Medication Instructions Recorded Confirmed Aspirin 81 mg PO DAILY 06/01/17 06/01/17 Atorvastatin Calcium [Lipitor] 20 mg PO HS 06/01/17 06/01/17 Cetirizine HCl [Zyrtec] 10 mg PO DAILY 06/01/17 06/01/17 Cholecalciferol (Vitamin D3) 8,000 unit PO DAILY 06/01/17 06/01/17 [Vitamin D3] Dutasteride [Avodart] 0.5 mg PO DAILY 06/01/17 06/01/17 Ferrous Sulfate 325 mg PO TUFR 06/01/17 06/01/17 Fluticasone Propionate [Flovent 1 puff IH BID 06/01/17 06/01/17 Hfa] Glimepiride [Amaryl] 8 mg PO DAILY 06/01/17 06/01/17 Insulin ASPART [Novolog Flexpen] 0 unit SQ TID 06/01/17 06/01/17 Insulin Glargine,Hum.rec.anlog 15 unit SQ HS 06/01/17 06/01/17 [Lantus Solostar] Ipratropium/Albuterol Neb [Duoneb] 3 ml IH Q6H PRN 06/01/17 06/01/17 Levothyroxine [Synthroid] 88 mcg PO 0630 06/01/17 06/01/17 Linagliptin [Tradjenta] 5 mg PO DAILY 06/01/17 06/01/17 Liothyronine Sodium [Cytomel] 5 mcg PO DAILY 06/01/17 06/01/17 Metoprolol [Lopressor] 25 mg PO BID 06/01/17 06/01/17 Montelukast [Singulair] 10 mg PO DAILY 06/01/17 06/01/17 Niacin [Niaspan] 1,000 mg PO DAILY 06/01/17 06/01/17 Replenex 1 tab PO DAILY 06/01/17 06/01/17 metOLazone [Zaroxolyn] 2.5 mg PO MOTH 06/01/17 06/01/17 Potassium Chloride [Klor-Con] 20 meq PO HS 10/09/17 10/09/17 Previous Rx's Medication Instructions Recorded Furosemide [Lasix] 40 mg PO BID #30 tablet 06/04/17 Allergies Allergy/AdvReac Type Severity Reaction Status Date / Time potassium AdvReac See Verified 06/01/17 15:11 Comments All systems ED: reviewed and negative except as stated. Review of Systems: As Per HPI Past Medical History - Past Medical History Attestation: Yes The following information was validated with the patient. Source: patient Medical history: Reports: asthma, atrial fibrillation, CHF, COPD (Asthma), coronary artery disease, diabetes, hypertension, syncope, other (Aortic valve replacement) Surgical history: Reports: angioplasty/stent, coronary bypass (CABG), AICD Psychiatric history: Reports: no psych history - Social History Smoking Status: Never smoker Smokeless Tobacco Status: No Alcohol use: Reports: none Drug use: Reports: none Physical Exam - General Limitations: no limitations General appearance: alert, in no apparent distress - Head Head exam: normocephalic - Expanded Head Exam Head exam physicial: Present: contusion. Absent: laceration, abrasion, raccoon eyes, Mcgill's sign, tenderness of temporal artery, CSF rhinorrhea, CSF otorrhea 1 - Large indurated contusion - Eye Eye exam: Present: normal appearance, PERRL, EOMI. Absent: nystagmus - ENT ENT exam: mucous membranes moist - Neck Neck exam: Present: normal inspection, full ROM, trachea midline - Chest Chest inspection: Present: normal inspection, symmetric chest wall rise - Respiratory Respiratory exam: Present: normal lung sounds bilaterally - Cardiovascular Cardiovascular exam: Present: regular rate, irregular rhythm, other (AICD firing ; BLE PE 2+; Vascular changes to feet) - Abdominal Exam Abdominal exam: Present: soft, Non-Tender, normal bowel sounds - Expanded Upper Extremity Exam Elbow exam: Present: other (skin tear) Neurosensory exam: Normal: radial nerve Vascular exam: Normal: capillary refill, radial pulse - Neurological Exam Neurological exam: Present: alert, oriented X3, CN II-XII intact - Expanded Neurological Exam Patient oriented to: Present: person, place, time Speech: Present: fluid speech Cranial nerves: EOM function (II, III, IV, ): Normal, facial sensation (V): Normal, facial palsy (VII): Normal, gag reflex (IX): Normal, spinal accessory function (XI): Normal, tongue deviation (XII): Normal Motor strength - LUE: 5/5 Motor strength - RUE: 5/5 Motor strength - LLE: 5/5 Motor strength - RLE: 5/5 - Psychiatric Psychiatric exam: Present: normal affect, normal mood - Skin Skin exam: Present: warm, dry, intact, normal color Course Course Narrative: 87-year-old male in no apparent distress. Respirations are easy and even. Patient is alert and oriented 3, he answers questions appropriately and does follow conversation. Patient neurologically intact, he is slow to respond though this is at baseline. Heart rate irregular, A. fib, rate controlled, noted with AICD firing frequently, EKG showing A. fib with the event weight of 63 bpm, right bundle branch block, no change from previous EKG; bilateral lower extremities with 2+ pitting edema,, lungs clear to auscultate. Head with large 7 cm oblong indurated contusion to left back of head. Right elbow with skin tear, bleeding controlled. - Reevaluation(s) Reevaluation #1: Patient continues to rest quietly, head CT returns with a hematoma but without a skull fracture or bleeding, chest x-ray returns negative, UA returns negative , x-rays of shoulder and elbow without fracture. Labs returned with a BNP at 370, creatinine 1.81, GFR 36, potassium 3.1, troponin 0.14. Due to syncopal episode, I feel patient would be best served admitted to the hospital for cardiac monitoring, continuing assessment and interventions of syncopal episode. Family and patient is agreeable with plan of care for admission. Hospitalist paged and except the patient to medical floor. Time: 06:12 Vital Signs Temperature 97.1 F L 10/09/17 03:37 Pulse Rate 71 10/09/17 03:37 Respiratory Rate 20 10/09/17 03:37 Blood Pressure 187/79 10/09/17 03:37 O2 Sat by Pulse Oximetry 95 10/09/17 03:37 Temperature 97.1 F L 10/09/17 03:37 Pulse Rate 80 10/09/17 05:30 Respiratory Rate 20 10/09/17 03:37 Blood Pressure 201/63 10/09/17 05:30 O2 Sat by Pulse Oximetry 92 10/09/17 05:30 Oxygen Delivery Oxygen Delivery Room Air Medical Decision Making - Medical Records Medical records reviewed: Yes I reviewed the patient's medical records. - Lab Data Lab results reviewed: Yes I reviewed the patient's lab results. Result diagrams: 10/09/17 04:16 10/09/17 04:16 Lab Results 10/09/17 10/09/17 10/09/17 Range/Units 03:54 04:15 04:16 WBC 9.6 (4.3-11.1) K/mcL RBC 4.07 L (4.19-5.50) M/mcL Hgb 13.8 (12.9-16.9) g/dL Hct 40.2 (37.5-50.1) % MCV 98.8 (83.0-100.0) fL MCH 33.9 H (28.0-33.3) pg MCHC 34.3 (31.6-35.5) g/dL RDW 13.3 (11.5-14.5) % Plt Count 102 L (140-400) K/mcL MPV 11.1 (9.4-12.4) fL Immature Gran % 0.7 (0-4) % Seg Neutrophils % 63.6 % Lymphocytes % 23.3 % Monocytes % 10.2 % Eosinophils % 1.8 % Basophils % 0.4 % Neutrophils # 6.1 (1.6-8.9) K/mcL Lymphocytes # 2.2 (0.6-4.6) K/mcL Monocytes # 1.0 (0.0-1.3) K/mcL Eosinophils # 0.2 (0.0-0.6) K/mcL Basophils # 0.0 (0.0-0.2) K/mcL Immature Plt Fraction 5.2 (1.1-6.1) % PT (9.4-12.1) Seconds INR APTT (26.0-36.0) Seconds Sodium (136-145) mEq/L Potassium (3.5-5.1) mEq/L Chloride (98-107) mEq/L Carbon Dioxide (23-29) mEq/L BUN (8-23) mg/dL Creatinine (0.70-1.30) mg/dL Est GFR ( Amer) (> 60) Est GFR (Non-Af Amer) (> 60) BUN/Creatinine Ratio (6-26) Glucose (70-105) mg/dL POC Glucose 178 H (70-99) mg/dL Calculated Osmolality (280-300) Calcium (8.6-10.3) mg/dL Troponin I (< 0.04) ng/mL B-Natriuretic Peptide (Less than 100) pg/mL Urine Color Yellow (Yellow) Urine Clarity Clear (Clear) Urine pH 6.0 (5.0-8.0) pH Units Ur Specific [place] 1.011 (1.010-1.025) Urine Protein Negative (Neg-Trace) mg/dL Urine Glucose (UA) Normal (Normal) mg/dL Urine Ketones Negative (Negative) mg/dL Urine Blood Negative (Negative) Urine Nitrite Negative (Negative) Urine Bilirubin Negative (Negative) Urine Urobilinogen Normal (Normal) mg/dL Ur Leukocyte Esterase Negative (Negative) Urine Microscopic RBC 0-3 (0-3) per hpf Urine Microscopic WBC 0-3 (0-3) per hpf Ur Squamous Epith Cells Few (None-Few) per lpf Urine Bacteria None Seen (None-Few) per hpf Hyaline Casts None Seen (None-Few) per lpf 10/09/17 10/09/17 10/09/17 Range/Units 04:16 04:16 04:16 WBC (4.3-11.1) K/mcL RBC (4.19-5.50) M/mcL Hgb (12.9-16.9) g/dL Hct (37.5-50.1) % MCV (83.0-100.0) fL MCH (28.0-33.3) pg MCHC (31.6-35.5) g/dL RDW (11.5-14.5) % Plt Count (140-400) K/mcL MPV (9.4-12.4) fL Immature Gran % (0-4) % Seg Neutrophils % % Lymphocytes % % Monocytes % % Eosinophils % % Basophils % % Neutrophils # (1.6-8.9) K/mcL Lymphocytes # (0.6-4.6) K/mcL Monocytes # (0.0-1.3) K/mcL Eosinophils # (0.0-0.6) K/mcL Basophils # (0.0-0.2) K/mcL Immature Plt Fraction (1.1-6.1) % PT 11.1 (9.4-12.1) Seconds INR 1.0 APTT 31.6 (26.0-36.0) Seconds Sodium 139 (136-145) mEq/L Potassium 3.1 L (3.5-5.1) mEq/L Chloride 97 L (98-107) mEq/L Carbon Dioxide 30 H (23-29) mEq/L BUN 42 H (8-23) mg/dL Creatinine 1.81 H (0.70-1.30) mg/dL Est GFR ( Amer) 43 L (> 60) Est GFR (Non-Af Amer) 36 L (> 60) BUN/Creatinine Ratio 23 (6-26) Glucose 187 H (70-105) mg/dL POC Glucose (70-99) mg/dL Calculated Osmolality 303 H (280-300) Calcium 10.5 H (8.6-10.3) mg/dL Troponin I 0.14 H* (< 0.04) ng/mL B-Natriuretic Peptide 307 H (Less than 100) pg/mL Urine Color (Yellow) Urine Clarity (Clear) Urine pH (5.0-8.0) pH Units Ur Specific [place] (1.010-1.025) Urine Protein (Neg-Trace) mg/dL Urine Glucose (UA) (Normal) mg/dL Urine Ketones (Negative) mg/dL Urine Blood (Negative) Urine Nitrite (Negative) Urine Bilirubin (Negative) Urine Urobilinogen (Normal) mg/dL Ur Leukocyte Esterase (Negative) Urine Microscopic RBC (0-3) per hpf Urine Microscopic WBC (0-3) per hpf Ur Squamous Epith Cells (None-Few) per lpf Urine Bacteria (None-Few) per hpf Hyaline Casts (None-Few) per lpf - Radiology Data Radiology results reviewed: Yes I reviewed the patient's radiology results. Chest X-Ray 10/09/17 03:51 IMPRESSION: No acute disease. D/ / Mak Patino MD / Mak Patino MD Interpreting Provider: Mak Patino MD Head CT 10/09/17 03:51 IMPRESSION: Posterior scalp hematoma without fracture or acute intracranial abnormality. Acute right mastoiditis. D/ / Mak Patino MD / Mak Patino MD Interpreting Provider: Mak Patino MD Elbow X-Ray 10/09/17 04:14 IMPRESSION: No fracture or malalignment. D/ / Mak Patino MD / Mak Patino MD Interpreting Provider: Mak Patino MD Shoulder X-Ray 10/09/17 04:18 IMPRESSION: No definite fracture or malalignment. D/ / Mak Patino MD / Mak Patino MD Interpreting Provider: Mak Patino MD - EKG Data EKG #1 EKG attestation: Yes I reviewed and interpreted this EKG. Attestation Statement - Attestation Attestation: I examined this patient and my medical decision-making was reviewed with the Nurse Practitioner. I agree with the documented findings, disposition and treatment plan as described except to the extent set forth below. 87-year-old male presents ED because of injuries from a fall secondary to syncope. He was returning from the bathroom when he passed out. He had no preemptive symptoms. Denies associated palpitations or dyspnea but also has no recollection of the fall. heard him hit the floor and when she arrived he was unconscious. Complain of injury to the back of his head. Since he has had nausea. Denies dyspnea. No diaphoresis. No chest pain. He has a history of coronary disease as well as congestive heart failure Elderly male in no apparent distress. He appears uncomfortable. Intermittent nausea and vomiting. Pupils equal reactive light. Oropharynx is clear. Mucous membranes are moist. Neck is nontender palpation. Chest clear to auscultation bilaterally. Cardiac exam irregular rhythm. Abdomen soft nontender. Extremities warm and dry. He has edema of both legs, more so on the left which is normal according to his . Tenderness around the right glenohumeral joint without palpable deformity. Abrasion to the lateral aspect of the right elbow. Distal pulses are brisk. EKG with H fibrillation, rate controlled. Diffuse ST and T-wave abnormalities similar to previous tracing. CT head unremarkable for any acute process. X-ray of the right shoulder and elbow negative for acute process. Troponin is elevated 0.14 which is actually lower than PREVIOUS labs. He will be observed in the hospital due to the syncope.
[2017-10-09 04:25] LABS: Bilirubin,Urine Negative (Negative); Blood,Urine Negative (Negative); Clarity,Urine Clear (Clear); Color,Urine Yellow (Yellow); Glucose,Urine (UA) Normal (Normal); Ketones,Urine Negative (Negative); Leukocyte Esterase,Urine Negative (Negative); Nitrite,Urine Negative (Negative); Protein,Urine Negative (Neg-Trace); Specific Gravity,Urine 1.011 (1.010-1.025); Urobilinogen,Urine Normal (Normal)
[2017-10-09 04:26] LABS: Bacteria,Urine None Seen per hpf (None-Few); Hyaline Casts,Urine None Seen per lpf (None-Few); RBC,Urine 0-3 per hpf (0-3); Squamous Epithelial Cell,Urine Few per lpf (None-Few); WBC,Urine 0-3 per hpf (0-3)
[2017-10-09 04:41] LABS: Basophils % 0.4 %; Eosinophils # 0.2 K/mcL (0.0-0.6); Eosinophils % 1.8 %; Hematocrit 40.2 % (37.5-50.1); Hemoglobin 13.8 g/dL (12.9-16.9); Immature Granulocytes % 0.7 % (0-4); Immature Platelets 5.2 % (1.1-6.1); Lymphocytes # 2.2 K/mcL (0.6-4.6); Lymphocytes % 23.3 %; Mean Corpuscular HGB Conc 34.3 g/dL (31.6-35.5); Mean Corpuscular Hemoglobin 33.9 pg (28.0-33.3); Mean Corpuscular Volume 98.8 fL (83.0-100.0); Mean Platelet Volume 11.1 fL (9.4-12.4); Monocytes % 10.2 %; Neutrophils # 6.1 K/mcL (1.6-8.9); Platelet Count 102 K/mcL (140-400); Red Blood Count 4.07 M/mcL (4.19-5.50); Red Cell Distribution Width 13.3 % (11.5-14.5); Segmented Neutrophils % 63.6 %
[2017-10-09 04:47] LABS: Prothrombin Time 11.1 Seconds (9.4-12.1)
[2017-10-09 04:50] LABS: Activated Partial Thrombo Time 31.6 Seconds (26.0-36.0)
[2017-10-09 04:59] LABS: Calcium 10.5 mg/dL (8.6-10.3); Potassium 3.1 mEq/L (3.5-5.1)
[2017-10-09 05:03] LABS: Troponin I 0.14 ng/mL (< 0.04)
--- NOTE | 2017-10-09 06:07 | Internal Med History&Physical ---
Date of Encounter: 10/09/17 Time of Encounter: 06:05 Internal Medicine - H&P: HPI Chief complaint: Syncopal and fall History of present illness: Mr. Steel is a 87 year old male with a history of permanent A. fib status post pacer, CHF, hypertension, AAA on surveillance, hypothyroid, diabetes type 2 , hyperlipidemia, asthma who presents with traumatic fall with right elbow laceration and scalp hematoma. The fall was unwitnessed and patient was not able to fully recall events. Collateral history from the reports that she heard a loud thud sound in the bathroom at approximately 2:30 AM and he was subsequently found down on the floor. It was reported that he was going to the bathroom at approximately 230 in the a.m to urinate when he fell. He uses a cane to help him ambulate to the bathroom in the evenings but is otherwise independent. It appeared that he sustained trauma to the back of his head, right side of his body to include a right elbow and right shoulder with some pain and laceration. The noted that he may have suffered from a concussion-like syndrome where he was days for at least 10-15 mins before having some response. On review mentioned that this is his first fall in the past few years. EKG personally reviewed with rate of 63, A. fib XR/XR chest 1V portable IMPRESSION: No acute disease. CT/CT head/brain wo con IMPRESSION: Posterior scalp hematoma without fracture or acute intracranial abnormality. Acute right mastoiditis. XR/XR elbow complete RT IMPRESSION: No fracture or malalignment. XR/XR shoulder complete RT IMPRESSION: No definite fracture or malalignment. Past Med Surg Social Fam HX - Past Medical History Medical history: asthma, atrial fibrillation, CHF, COPD (Asthma), coronary artery disease, diabetes, hypertension, syncope, other (Aortic valve replacement ) Psychiatric history: no psych history - Past Surgical History Surgical History: angioplasty/stent, coronary bypass (CABG), AICD - Social History Smoking Status: Never smoker Smokeless Tobacco Status: No Alcohol use: none Drug use: none - Family History Father Adopted: No Family Member Ethnicity: Non- Living Status: Hx Family Cardiac Disorders: No Hx Family Respiratory Disorders: No Hx Family Cancer: No Hx Family GI Disorders: No Hx Family Endocrine Disorder: No Hx Family Neuromuscular Disorders: Yes Hx Family Neurologic Disorders: No Hx Family HEENT Disorders: No Hx Family Autoimmune Disorders: No Mother Family Member Ethnicity: Non- Living Status: Hx Family Cardiac Disorders: No Hx Family Respiratory Disorders: No Hx Family Cancer: No Hx Family GI Disorders: No Hx Family Endocrine Disorder: No Hx Family Neuromuscular Disorders: No Hx Family Neurologic Disorders: No Hx Family HEENT Disorders: No Hx Family Autoimmune Disorders: No Brother Adopted: No Family Member Ethnicity: Non- Living Status: Hx Family Cardiac Disorders: Yes Hx Family Respiratory Disorders: No Hx Family Cancer: No Hx Family GI Disorders: No Hx Family Endocrine Disorder: No Hx Family Neuromuscular Disorders: No Hx Family Neurologic Disorders: No Hx Family HEENT Disorders: No Hx Family Autoimmune Disorders: No Sister Adopted: Yes Family Member Ethnicity: Non- Living Status: Still Living Hx Family Cardiac Disorders: No Hx Family Respiratory Disorders: No Hx Family Cancer: No Hx Family GI Disorders: No Hx Family Endocrine Disorder: Yes (DM) Hx Family Neuromuscular Disorders: No Hx Family Neurologic Disorders: No Hx Family HEENT Disorders: No Hx Family Autoimmune Disorders: No Internal Medicine - H&P: Meds Aspirin 81 mg PO DAILY 06/01/17 [History] Atorvastatin Calcium [Lipitor] 20 mg PO HS 06/01/17 [History] Cetirizine HCl [Zyrtec] 10 mg PO DAILY 06/01/17 [History] Cholecalciferol (Vitamin D3) [Vitamin D3] 8,000 unit PO DAILY 06/01/17 [History] Dutasteride [Avodart] 0.5 mg PO HS 06/01/17 [History] Ferrous Sulfate 65 mg PO TUFR 06/01/17 [History] Fluticasone Propionate [Flovent Hfa] 1 puff IH BID 06/01/17 [History] Glimepiride [Amaryl] 4 mg PO DAILY 06/01/17 [History] Insulin ASPART [Novolog Flexpen] 10 unit SQ TID 06/01/17 [History] Insulin Glargine,Hum.rec.anlog [Lantus Solostar] 15 unit SQ HS 06/01/17 [History ] Ipratropium/Albuterol Neb [Duoneb] 3 ml IH Q6H PRN 06/01/17 [History] Levothyroxine [Synthroid] 88 mcg PO 0630 06/01/17 [History] Linagliptin [Tradjenta] 5 mg PO DAILY 06/01/17 [History] Liothyronine Sodium [Cytomel] 5 mcg PO DAILY 06/01/17 [History] Metoprolol [Lopressor] 25 mg PO BID 06/01/17 [History] Montelukast [Singulair] 10 mg PO DAILY 06/01/17 [History] Niacin [Niaspan] 1,000 mg PO DAILY 06/01/17 [History] Replenex 1 tab PO HS 06/01/17 [History] metOLazone [Zaroxolyn] 2.5 mg PO MOTH 06/01/17 [History] Furosemide [Lasix] 40 mg PO BID #30 tablet 06/04/17 [Rx] Potassium Chloride [Klor-Con] 20 meq PO HS 10/09/17 [History] 3 Allergy/AdvReac Type Severity Reaction Status Date / Time potassium AdvReac See Verified 06/01/17 15:11 Comments All Systems PM: A 10-system review of systems was performed and is negative for pertinent findings except as documented above in the HPI. Review of systems: ROS 14 point review of systems reviewed as best as possible given presentation. Pertinent positive or negative as per HPI or otherwise reviewed as negative - Constitutional Vitals: Temp Pulse Resp BP Pulse Ox 97.1 F L 80 20 201/63 92 10/09/17 03:37 10/09/17 05:30 10/09/17 03:37 10/09/17 05:30 10/09/17 05:30 Exam: General - AAO x 3 Psych - Appropriate affect/speech. No agitation Eyes - AVI. Eye lids intact. No scleral icterus Neuro - No gross peripheral or central neuro deficits on inspection Heart -irregular. S1 and S2 present. No added HS. systolic murmur appreciated. No elevated JVD appreciated. Lung - Adequate air entry b/l, No crackles/wheezes appreciated GI - Soft, non-tender. No hepatosplenomegaly/ascites. BS+ - No CVA/suprapubic tenderness or palpable bladder distension Skin - laceration over her right elbow, swelling over posterior skull due to hematoma MSK - right shoulder discomfort Internal Med - H&P Results - Labs CBC & Chem 7: 10/09/17 04:16 10/09/17 04:16 Labs: Short CBC 10/09/17 Range/Units 04:16 WBC 9.6 (4.3-11.1) K/mcL Hgb 13.8 (12.9-16.9) g/dL Hct 40.2 (37.5-50.1) % Plt Count 102 L (140-400) K/mcL Neutrophils # 6.1 (1.6-8.9) K/mcL BMP 10/09/17 04:16 Sodium 139 Potassium 3.1 L Chloride 97 L Carbon Dioxide 30 H BUN 42 H Creatinine 1.81 H Glucose 187 H Calcium 10.5 H Cardiac Enzymes 10/09/17 Range/Units 04:16 Troponin I 0.14 H* (< 0.04) ng/mL Urine 10/09/17 Range/Units 04:15 Urine Color Yellow (Yellow) Urine Clarity Clear (Clear) Urine pH 6.0 (5.0-8.0) pH Units Ur Specific [place] 1.011 (1.010-1.025) Urine Protein Negative (Neg-Trace) mg/dL Urine Glucose (UA) Normal (Normal) mg/dL - Impressions ITS Impressions Chest X-Ray 10/09/17 03:51 IMPRESSION: No acute disease. D/ / Mak Patino MD / Mak Patino MD Interpreting Provider: Mak Patino MD Head CT 10/09/17 03:51 IMPRESSION: Posterior scalp hematoma without fracture or acute intracranial abnormality. Acute right mastoiditis. D/ / Mak Patino MD / Mak Patino MD Interpreting Provider: Mak Patino MD Elbow X-Ray 10/09/17 04:14 IMPRESSION: No fracture or malalignment. D/ / Mak Patino MD / Mak Patino MD Interpreting Provider: Mak Patino MD Shoulder X-Ray 10/09/17 04:18 IMPRESSION: No definite fracture or malalignment. D/ / Mak Patino MD / Mak Patino MD Interpreting Provider: Mak Patino MD - Assessment and plan (1) Syncope and collapse Current Visit: Yes Status: Acute Assessment and plan: orthostats Tele Consider holter ? Ambulate monitor inpatient course and further testing as necessary (2) Fall Current Visit: Yes Status: Acute Assessment and plan: suspect fall 2/2 syncope ? PT/OT eval Qualifiers: Encounter type: initial encounter Qualified Code(s): W19.XXXA - Unspecified fall, initial encounter (3) Atrial fibrillation Current Visit: No Status: Chronic Assessment and plan: s/p pacer on ASA, NOT AC due to bleeding with prior eliquis Qualifiers: Atrial fibrillation type: chronic Qualified Code(s): I48.2 - Chronic atrial fibrillation (4) CAD (coronary artery disease) Current Visit: No Status: Chronic Assessment and plan: s/p CABG, AVR Qualifiers: Coronary Disease-Associated Artery/Lesion type: bypass graft [place] vs. transplanted heart: [place] heart Associated angina: without angina Qualified Code(s): I25.810 - Atherosclerosis of coronary artery bypass graft(s) without angina pectoris (5) CKD (chronic kidney disease) Current Visit: No Status: Chronic Assessment and plan: baseline Qualifiers: Chronic kidney disease stage: stage 3 (moderate) Qualified Code(s): N18.3 - Chronic kidney disease, stage 3 (moderate) (6) HTN (hypertension) Current Visit: No Status: Chronic Assessment and plan: on cardiac med Qualifiers: Hypertension type: essential hypertension Qualified Code(s): I10 - Essential (primary) hypertension (7) Insulin dependent diabetes mellitus Current Visit: No Status: Chronic Assessment and plan: continue insulin (8) Thyroid disease Current Visit: No Status: Chronic Assessment and plan: continue med (9) Elevated troponin Current Visit: No Status: Acute Assessment and plan: chronic troponemia . No CP or equivalent symptoms (10) Laceration of elbow, right Current Visit: Yes Status: Acute Assessment and plan: conservative management for now wound care Qualifiers: Encounter type: initial encounter Qualified Code(s): S51.011A - Laceration without foreign body of right elbow, initial encounter (11) Scalp hematoma Current Visit: Yes Status: Acute Assessment and plan: conservative management Qualifiers: Encounter type: initial encounter Qualified Code(s): S00.03XA - Contusion of scalp, initial encounter - Time Spent With Patient Total time spent is greater than 50% in coordination of care (as documented) at patient's floor/unit and/or counseling patient:
[2017-10-09] MEDS ORDERED: Ipratropium/Albuterol Neb 3 ML IH PRN (06:21)
[2017-10-09] MEDS ORDERED: Naloxone 0.4 MG/ML INJ IVP PRN (06:25)
[2017-10-09] MEDS ORDERED: D5% in Water 1,000 ML IVC PRN (06:26)
[2017-10-09] MEDS ORDERED: *HR* Dextrose 50 % in Water (Syg) 50 ML SYRINGE IVP PRN (06:26)
[2017-10-09] MEDS ORDERED: Dextrose Gel 15 GM/37.5 ML TUBE PO PRN ×2 (06:26)
[2017-10-09] MEDS ORDERED: Insulin LISPRO 300 UNITS/3 ML VIAL SQ SCH ×3 (06:30→21:00)
[2017-10-09] MEDS: Insulin LISPRO 300 UNITS/3 ML VIAL SQ SCH ×3 (07:45→17:50)
[2017-10-09] MEDS ORDERED: *HR* Glimepiride 4 MG TABLET PO SCH (08:00)
[2017-10-09] MEDS: Beclomethasone 80mcg MDI IH SCH ×2 (08:14→22:15)
[2017-10-09] MEDS ORDERED: LINAGLIPTIN 5 MG PO SCH (09:00)
[2017-10-09] MEDS: Loratadine 10 MG TABLET PO SCH (10:22)
[2017-10-09] MEDS: Cholecalciferol (D-3) 1,000 UNIT TABLET PO SCH (10:22)
[2017-10-09] MEDS: Furosemide 40 MG TABLET PO SCH (10:23)
[2017-10-09] MEDS: Niacin (24 HR) 500 MG TAB.ER.24H PO SCH (10:23)
--- NOTE | 2017-10-09 12:43 | Event Note ---
Date of Encounter: 10/09/17 Time of Encounter: 12:39 S: Patient had no acute events after admission. He was ambulated by PT today without any issues. He denies chest pain, SOB, abdominal pain, nausea, vomiting , fever, and chills. He has no complaints at this time. O: Gen - Awake, alert, well-nourished, no acute distress HEENT - NCAT, PERRLA, EOMI, hearing grossly intact, oropharynx benign CV - RRR, normal S1 and S2, no M/R/G, no BLE edema Resp - Normal WOB, CTAB, no W/R/R GI - Soft, NT/ND, no masses, normal bowel sounds, no HSP Skin - Warm, dry, no rashes/ulcers, 3 small areas of ecchymoses on left back Psych - Normal mood and affect, no depression or anxiety A/P: 1) Syncope/Fall - ECHO and carotid U/S pending. No further episodes. Continue PT/OT. Continue telemetry. Trend cardiac enzymes. Consider holter monitor at discharge.
[2017-10-09] MEDS ORDERED: Patient Taking Own Medication 1 EACH TP PRN (12:54)
[2017-10-09] MEDS ORDERED: PAIN A TRATE TP PRN (13:27)
[2017-10-09] MEDS ORDERED: Silvasorb 44.4 ML TUBE TP SCH (14:30)
[2017-10-09] MEDS ORDERED: Perflutren Lipid Microsphere 1.3 ML in 0.9 % Sodium Chloride 8.7 ML IVP ONE (16:42)
[2017-10-09] MEDS ORDERED: Perflutren Lipid Microsphere 2 ML VIAL ONE (16:46)
[2017-10-09] MEDS ORDERED: Finasteride 5 MG TABLET PO SCH (21:00)
[2017-10-09] MEDS ORDERED: Insulin DETEMIR 100 UNIT/ML X5UNITS SQ SCH (21:00)
[2017-10-09] MEDS ORDERED: REPLENEX PO SCH (21:00)
[2017-10-09] MEDS: Acetaminophen 325 MG TABLET PO PRN (21:31)
[2017-10-10 01:15] LABS: Eosinophils % 1.4 %
[2017-10-10 01:17] LABS: Basophils % 0.2 %; Eosinophils # 0.1 K/mcL (0.0-0.6); Hematocrit 36.5 % (37.5-50.1); Hemoglobin 12.5 g/dL (12.9-16.9); Immature Granulocytes % 0.4 % (0-4); Lymphocytes # 1.1 K/mcL (0.6-4.6); Lymphocytes % 13.4 %; Mean Corpuscular HGB Conc 34.2 g/dL (31.6-35.5); Mean Corpuscular Hemoglobin 33.9 pg (28.0-33.3); Mean Corpuscular Volume 98.9 fL (83.0-100.0); Mean Platelet Volume 11.2 fL (9.4-12.4); Monocytes # 1.1 K/mcL (0.0-1.3); Monocytes % 13.5 %; Neutrophils # 5.7 K/mcL (1.6-8.9); Red Blood Count 3.69 M/mcL (4.19-5.50); Red Cell Distribution Width 13.5 % (11.5-14.5); Segmented Neutrophils % 71.1 %
[2017-10-10 01:20] LABS: Platelet Count 91 K/mcL (140-400)
[2017-10-10 01:33] LABS: Calcium 10.2 mg/dL (8.6-10.3); Magnesium 1.5 mg/dL (1.6-2.6); Potassium 3.8 mEq/L (3.5-5.1)
[2017-10-10] MEDS: Beclomethasone 80mcg MDI IH SCH (07:30)
[2017-10-10] MEDS: Furosemide 40 MG TABLET PO SCH (08:30)
[2017-10-10] MEDS: Acetaminophen 325 MG TABLET PO PRN ×2 (08:30→14:31)
[2017-10-10] MEDS: Niacin (24 HR) 500 MG TAB.ER.24H PO SCH (08:30)
[2017-10-10] MEDS: Loratadine 10 MG TABLET PO SCH (08:30)
[2017-10-10] MEDS: Cholecalciferol (D-3) 1,000 UNIT TABLET PO SCH (08:30)
[2017-10-10] MEDS: Insulin LISPRO 300 UNITS/3 ML VIAL SQ SCH ×2 (08:31→12:24)
[2017-10-10] MEDS ORDERED: Aspirin 81 MG TAB.CHEW PO SCH (09:00)
[2017-10-10 11:30] VITALS: BP 131/73
--- NOTE | 2017-10-10 13:16 | Discharge Summary ---
- NOTES TO OUTPATIENT PROVIDER Notes to Outpatient Provider: Follow up with PCP in 2-3 days after discharge. Consider referral for holter monitor if continues to have syncopal episodes. Orders not resulted at time of discharge: Pending orders 10/10/17 10:24 EV limited echocardiogram Stat 10/11/17 04:00 Basic Metabolic Panel AM 0400 CBC [Complete Blood Count] [HEME] AM 0400 Date of Encounter: 10/10/17 Time of Encounter: 13:14 - Discharge Diagnosis (1) Fall Priority: Primary Status: Acute Qualifiers: Encounter type: initial encounter Qualified Code(s): W19.XXXA - Unspecified fall, initial encounter (2) Syncope and collapse Priority: Secondary Status: Acute (3) Laceration of elbow, right Priority: Secondary Status: Acute Qualifiers: Encounter type: initial encounter Qualified Code(s): S51.011A - Laceration without foreign body of right elbow, initial encounter (4) Scalp hematoma Priority: Secondary Status: Acute Qualifiers: Encounter type: initial encounter Qualified Code(s): S00.03XA - Contusion of scalp, initial encounter (5) CKD (chronic kidney disease) Priority: Secondary Status: Chronic Qualifiers: Chronic kidney disease stage: stage 3 (moderate) Qualified Code(s): N18.3 - Chronic kidney disease, stage 3 (moderate) (6) Elevated troponin Priority: Secondary Status: Chronic (7) Atrial fibrillation Priority: Secondary Status: Chronic Qualifiers: Atrial fibrillation type: chronic Qualified Code(s): I48.2 - Chronic atrial fibrillation (8) HTN (hypertension) Priority: Secondary Status: Chronic Qualifiers: Hypertension type: essential hypertension Qualified Code(s): I10 - Essential (primary) hypertension (9) CAD (coronary artery disease) Priority: Secondary Status: Chronic Qualifiers: Coronary Disease-Associated Artery/Lesion type: bypass graft [place] vs. 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 Steel is a 87 year old male syncope and fall. Patient was admitted for observation to general medical floor with telemetry. He experienced no further episodes of syncope or dizziness after admission. PT/OT was consulted, and recommended home health with home PT/OT. Limited ECHO study showed LVEF of 65% with no other abnormal findings. 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 Patient will follow up with PCP in 2-3 days after discharge. If he experiences any further syncopal episodes, PCP can refer him for holter monitor. Patient has met maximum benefit of this hospitalization and will be discharged home with home health in stable condition. Discharge discussed with: patient, family, nurse, social work - Time Spent with Patient Total time spent providing and/or coordinating discharge services: Less than 30 minutes - Discharge Medications Home Medications: Aspirin 81 mg PO DAILY 06/01/17 [History] Atorvastatin Calcium [Lipitor] 20 mg PO HS 06/01/17 [History] Cetirizine HCl [Zyrtec] 10 mg PO DAILY 06/01/17 [History] Cholecalciferol (Vitamin D3) [Vitamin D3] 8,000 unit PO DAILY 06/01/17 [History] Dutasteride [Avodart] 0.5 mg PO HS 06/01/17 [History] Ferrous Sulfate 325 mg PO TUFR 06/01/17 [History] Fluticasone Propionate [Flovent Hfa] 2 puff IH BID 06/01/17 [History] Insulin ASPART [Novolog Flexpen] 10 unit SQ TIDWM 06/01/17 [History] Insulin Glargine,Hum.rec.anlog [Lantus Solostar] 15 unit SQ HS 06/01/17 [History ] Levothyroxine [Synthroid] 88 mcg PO 0630 06/01/17 [History] Linagliptin [Tradjenta] 5 mg PO DAILY 06/01/17 [History] Liothyronine Sodium [Cytomel] 5 mcg PO DAILY 06/01/17 [History] Montelukast [Singulair] 10 mg PO DAILY 06/01/17 [History] Niacin [Niaspan] 1,000 mg PO DAILY 06/01/17 [History] Replenex 1 tab PO HS 06/01/17 [History] metOLazone [Zaroxolyn] 2.5 mg PO MOTH 06/01/17 [History] Albuterol Sulfate [Proventil Hfa] 1 puff IH Q4-6H PRN 10/09/17 [History] Furosemide [Lasix] 40 mg PO DAILY 10/09/17 [History] Glimepiride [Amaryl] 1 mg PO DAILY 10/09/17 [History] Metoprolol Succinate [Toprol Xl] 25 mg PO BID 10/09/17 [History] Potassium Chloride [Klor-Con] 20 meq PO HS 10/09/17 [History] Allergies/Adverse Reactions: 3 Allergy/AdvReac Type Severity Reaction Status Date / Time No Known Allergies Allergy Verified 10/09/17 07:08 Date of admission: 10/09/17 06:29 Primary care physician: Andrzej Vázquez, Consults: 10/09/17 10:44 Consult to Process Stripper [CONS] Routine Reason for SW Consult: Home health PT OT Discharging clinician: Stevan Jacobsen Anticipated date of discharge: 10/10/17 - Constitutional Vitals: Temp Pulse Resp BP Pulse Ox 97.7 F 66 14 131/73 100 10/10/17 11:25 10/10/17 11:25 10/10/17 11:25 10/10/17 11:25 10/10/17 11:25 General appearance: Present: cooperative, A&O X 3, pleasant, no acute distress, obese, answers questions appropriately - Respiratory Respiratory exam: Present: CTAB. Absent: accessory muscle use, rales, rhonchi, wheezes Additional comments: Normal WOB - Cardiovascular Cardiovascular exam: Present: RRR, +S1, +S2. Absent: diastolic murmur, gallop, rubs, systolic murmur Additional comments: No BLE edema - GI/Abdominal GI/Abdominal exam: Present: normal bowel sounds, soft. Absent: distended, hepatomegaly, mass, splenomegaly, tenderness - Psychiatric Psychiatric exam: Present: normal affect, normal mood. Absent: agitated, anxious, depressed - Skin Skin exam: Present: dry, intact, warm. Absent: cyanosis, rash Additional comments: Echhymoses on posterior head and back, unchanged from yesterday - Patient Status Disposition: Home Health Service Condition: Undetermined Overall status at discharge: patient is progressing back to baseline - Discharge Instructions Follow Up With: Andrzej Vázquez DO [Primary Care Provider] - Additional Instructions: Follow up with PCP in 2-3 days after discharge. Consider referral for holter monitor if continues to have syncopal episodes. - Diet and Activity Activity: as per physical therapy Diet: diabetic diet, low fat, low cholesterol, low salt diet, other (Cardiac Diet, Renal Diet) - VTE Documentation of Mechanical Device: Intermittent pneumatic compression device
--- NOTE | 2017-10-10 13:28 | Physician Discharge Referral ---
Home Health/Hosp Referral Info Transfer to: Home Health Provider in Charge Post Discharge: PCP - Diagnosis (1) Fall Priority: Primary Status: Acute (2) Syncope and collapse Priority: Secondary Status: Acute (3) Laceration of elbow, right Priority: Secondary Status: Acute (4) Scalp hematoma Priority: Secondary Status: Acute (5) CKD (chronic kidney disease) Priority: Secondary Status: Chronic (6) Elevated troponin Priority: Secondary Status: Chronic (7) Atrial fibrillation Priority: Secondary Status: Chronic (8) HTN (hypertension) Priority: Secondary Status: Chronic (9) CAD (coronary artery disease) Priority: Secondary Status: Chronic (10) Thyroid disease Priority: Secondary Status: Chronic (11) Insulin dependent diabetes mellitus Priority: Secondary Status: Chronic - Respiratory Orders None Smoking Cessation: Smoking cessation has been advised. For more information, call the [place] Tobacco Quit Line at 7-478-GXIE-NOW. - Dressing/Wound Care Site: As recommended by wound care. - Diet/Nutrition Diet/Nutrition Orders: No Added Salt (VICKIE), Renal, Cardiac, No Concentrated Sweets - Activity Activity: List: Per physical therapy - Services Needed Following services are medically necessary services: Nursing, Physical Therapy, Occupational Therapy - Transfer Medications Home Medications: Aspirin 81 mg PO DAILY 06/01/17 [History] Atorvastatin Calcium [Lipitor] 20 mg PO HS 06/01/17 [History] Cetirizine HCl [Zyrtec] 10 mg PO DAILY 06/01/17 [History] Cholecalciferol (Vitamin D3) [Vitamin D3] 8,000 unit PO DAILY 06/01/17 [History] Dutasteride [Avodart] 0.5 mg PO HS 06/01/17 [History] Ferrous Sulfate 325 mg PO TUFR 06/01/17 [History] Fluticasone Propionate [Flovent Hfa] 2 puff IH BID 06/01/17 [History] Insulin ASPART [Novolog Flexpen] 10 unit SQ TIDWM 06/01/17 [History] Insulin Glargine,Hum.rec.anlog [Lantus Solostar] 15 unit SQ HS 06/01/17 [History ] Levothyroxine [Synthroid] 88 mcg PO 0630 06/01/17 [History] Linagliptin [Tradjenta] 5 mg PO DAILY 06/01/17 [History] Liothyronine Sodium [Cytomel] 5 mcg PO DAILY 06/01/17 [History] Montelukast [Singulair] 10 mg PO DAILY 06/01/17 [History] Niacin [Niaspan] 1,000 mg PO DAILY 06/01/17 [History] Replenex 1 tab PO HS 06/01/17 [History] metOLazone [Zaroxolyn] 2.5 mg PO MOTH 06/01/17 [History] Albuterol Sulfate [Proventil Hfa] 1 puff IH Q4-6H PRN 10/09/17 [History] Furosemide [Lasix] 40 mg PO DAILY 10/09/17 [History] Glimepiride [Amaryl] 1 mg PO DAILY 10/09/17 [History] Metoprolol Succinate [Toprol Xl] 25 mg PO BID 10/09/17 [History] Potassium Chloride [Klor-Con] 20 meq PO HS 10/09/17 [History] Allergies/Adverse Reactions: 3 Allergy/AdvReac Type Severity Reaction Status Date / Time No Known Allergies Allergy Verified 10/09/17 07:08 Certification: Further, I certify that my clinical findings support that this patient is homebound (i.e. absences from home require considerable and taxing effort and are for medical reasons or [facility] or infrequently or short duration when for other reasons) because: recurrent falls, syncope, Afib, CKD, HTN, and Type II DM. Homebound Reason: Patient requires assistance of a person or device to safely leave home, Leaving home requires considerable and taxing effort due to condition, Severity of cardiac or pulmonary status limits activity tolerance Attestation: My signature below is to certify that this patient is under my care and that I, or nurse practitioner, or a physician's grants assistant working with me, has a face-to -face encounter with this patient.
--- NOTE | 2017-10-11 21:39 | Electrocardiograph Report ---
[place] [id number] Test Date: 2017-10-09 Pat Name: Sujit Steel Department: 103 Room: [facility] Gender: M Salon Manager: MEGGAN : [id number] Requested By: [id number] Order Number: [id number] Reading MD: Chris Ferreira Measurements Intervals [place] Rate: 63 P: [place]: 0 QRS: 40 QRSD: 144 T: -31 QT: 460 QTc: 467 Interpretive Statements ATRIAL FIBRILLATION RIGHT BUNDLE BRANCH BLOCK Electronically Signed On 10-11-2017 21:37:52 EDT by Chris Ferreira
[2017-10-12] MEDS ORDERED: metOLazone 2.5 MG TABLET PO SCH (08:30)
== END 2017-10-10 16:00 | disposition home health service (06) ==
LOC: 3NENU 03:32 → EMEROO 03:32 → 3NENU 06:40
PROVIDERS: ADMIT Internal Medicine Hematology & Oncology; ATTEND Internal Medicine Hematology & Oncology